=== PATIENT | female | born 1980 ===

== ENCOUNTER 2017-09-21 22:13 | Emergency (ER) | payer SELFPAY ==
[2017-09-21] MEDS ORDERED: METOCLOPRAMIDE 5 MG/ML 2 ML VIAL IVP STA (22:55)
[2017-09-21] MEDS ORDERED: diphenhydrAMINE 50 MG/ML 1 ML VIAL IVP STA (22:55)
[2017-09-21] MEDS ORDERED: SODIUM CHLORIDE 0.9% 1,000 ML IV STA (22:55)
[2017-09-21 23:22] LABS: Basophils # (A) 0.1 k/uL (0-0.2); Basophils % (A) 1 %; Eosinophils # (A) 0.3 k/uL (0-0.7); Eosinophils % (A) 6 %; HCT 41.1 % (34.0-46.0); HGB 13.9 gm/dL (11.4-16.0); Lymphocytes # (A) 2.4 k/uL (1.0-4.8); Lymphocytes % (A) 44 %; MCH 32.9 pg (25.0-35.0); MCHC 33.7 g/dL (31.0-37.0); MCV 97.4 fL (80.0-100.0); Mean Platelet Volume 6.7; Monocytes # (A) 0.4 k/uL (0-1.0); Monocytes % (A) 7 %; Neutrophils # (A) 2.2 k/uL (1.3-7.7); Neutrophils % (A) 40 %; Platelet Count 316 k/uL (150-450); RBC 4.22 m/uL (3.80-5.40); RDW 12.7 % (11.5-15.5); WBC 5.5 k/uL (3.8-10.6)
[2017-09-21 23:34] LABS: Anion Gap 14 mmol/L; Blood Urea Nitrogen 11 mg/dL (7-17); Calcium 9.5 mg/dL (8.4-10.2); Carbon Dioxide 26 mmol/L (22-30); Chloride 105 mmol/L (98-107); Glucose 91 mg/dL (74-99); Potassium 4.1 mmol/L (3.5-5.1); Sodium 145 mmol/L (137-145)
[2017-09-21 23:46] LABS: Appearance,Urine Clear (Clear); Bilirubin,Urine Negative (Negative); Blood,Urine Negative (Negative); Color,Urine Yellow; Glucose,Urine (UA) Negative (Negative); Ketones,Urine Negative (Negative); Leukocyte Esterase,Urine Negative (Negative); Nitrite,Urine Negative (Negative); Protein,Urine Negative (Negative); Specific Gravity,Urine 1.017 (1.001-1.035); Urobilinogen,Urine <2.0 mg/dL (<2.0)
--- NOTE | 2017-09-21 23:55 | ED ---
Headache HPI - General Chief Complaint: Headache Stated Complaint: Headache Time Seen by Provider: 09/21/17 22:37 Mode of arrival: ambulatory Limitations: no limitations - History of Present Illness Initial Comments: Patient is a 37-year-old female presenting for fatigue and headache. Patient states that she has only past medical history of hypothyroid which she has been compliant with her medication,. She states that on Sunday, she will, with a slight headache which progressively got worse throughout the day as been fairly constant. He feels a pressure sensation movement of her head. She admits to some nausea but no vomiting and states that she has not been having any fevers or chills as well as abdominal pain. Her last menstrual period was 2 days ago and she denies any chest pain or shortness breath. She also states that she has been having some drainage in her throat as well as some coughing at night. However, she denies any unintentional weight loss - Related Data Home Medications Medication Instructions Recorded Confirmed Ibuprofen [Advil] 200 - 400 mg PO Q8HR PRN 09/21/17 09/21/17 Levothyroxine Sodium [Synthroid] 50 mcg PO DAILY 09/21/17 09/21/17 Sertraline [Zoloft] 50 mg PO DAILY 09/21/17 09/21/17 Previous Rx's Medication Instructions Recorded Ondansetron Odt [Zofran Odt] 4 mg PO Q8HR PRN #15 tab 09/22/17 Allergies Allergy/AdvReac Type Severity Reaction Status Date / Time sulfamethoxazole Allergy Rash/Hives Verified 09/21/17 23:03 [From Bactrim] trimethoprim [From Bactrim] Allergy Rash/Hives Verified 09/21/17 23:03 Review of Systems ROS Statement: Those systems with pertinent positive or pertinent negative responses have been documented in the HPI. Constitutional: Negative for chills, and fever.. Positive for fatigue HENT: Negative for congestion. Respiratory: Negative for chest tightness, shortness of breath and wheezing. Cardiovascular: Negative for chest pain and palpitations. Gastrointestinal: Negative for abdominal pain. Negative for abdominal distention , diarrhea, nausea and vomiting. Genitourinary: Negative for dysuria. Musculoskeletal: Negative for back pain, neck pain and neck stiffness. Positive for diffuse myalgias Skin: Negative for color change. Neurological: Negative for dizziness, speech difficulty, weakness and light- headedness. Positive for headache Psychiatric/Behavioral: Negative for agitation and confusion. The patient is not nervous/anxious. ROS Other: All systems not noted in ROS Statement are negative. Past Medical History Past Medical History: Thyroid Disorder History of Any Multi-Drug Resistant Organisms: None Reported Past Surgical History: No Surgical Hx Reported Past Psychological History: Depression Smoking Status: Current every day smoker Past Alcohol Use History: None Reported Past Drug Use History: None Reported General Exam - General Exam Comments Initial Comments: Physical Exam Constitutional: Pt is oriented to person, place, and time. Pt appears well- developed and well-nourished. No distress. HENT: Head: Normocephalic and atraumatic. Eyes: EOM are normal. Pupils equal reactive bilaterally measuring 3 mm Neck: Normal range of motion. Neck supple. Cardiovascular: Normal rate, regular rhythm, S1 normal, S2 normal and normal heart sounds. Exam reveals no gallop and no friction rub. No murmur heard. Pulmonary/Chest: Effort normal and breath sounds normal. No tachypnea and no bradypnea. No respiratory distress. No wheezes or rales noted. Abdominal: Soft. Bowel sounds are normal. Pt exhibits no shifting dullness, no distension, no pulsatile liver, no fluid wave, no abdominal bruit and no ascites. There is no tenderness. There is no rigidity, no rebound, no guarding, no tenderness at McBurney's point and negative Lambert's sign. Musculoskeletal: Normal range of motion. Neurological: Pt is alert and oriented to person, place, and time. No cranial nerve deficit. Negative Kernig and Brudzinski Skin: Skin is warm and dry. No rash noted. Pt is not diaphoretic. No erythema. No pallor. Psychiatric: Pt has a normal mood and affect. Pt behavior is normal. Thought content normal. Limitations: no limitations Course Vital Signs 09/21/17 22:30 Temperature 97.6 F Pulse Rate 69 Respiratory 19 Rate Blood Pressure 126/65 O2 Sat by Pulse 97 Oximetry - Reevaluation(s) Reevaluation #1: 09/22/17 00:11 Laboratory studies revealed that there was no significant leukocytosis and electrolytes are relatively within normal limits. Additionally, influenza was noted to be negative and urinalysis was negative for both and infection. Patient did state that her head felt much better after medications which included Reglan and Benadryl. She also got 1 L of normal saline. Discussions regarding CT of the head read and it was mutually decided that CT head was not warranted at this moment as there is no neuro deficits and that findings on physical exam as well as HPI or were not consistent with any emergent process such as subarachnoid hemorrhage or central venous thrombosis. However, it was decided that chest x-ray will be ordered to evaluate for possible infiltrate. Medical Decision Making - Medical Decision Making On reexamination prior to discharge, the patient continues to remain hemodynamically stable in no acute distress. Chest x-ray was also performed and showed no evidence of acute pathology or infiltrate. It was explained that while there does not appear to be an emergent process, the etiology of the symptoms are still unclear but possibly related to viral illness and may need further workup as an outpatient if symptoms continue. Explained all labs and diagnostic test results and that we will discharge the patient home and patient is to follow up with PCP in 1-2 days and return to the ED if symptoms worsen. Pt is agreeable to plan. - Lab Data Result diagrams: 09/21/17 23:00 09/21/17 23:00 Lab Results 09/21/17 09/21/17 09/21/17 Range/Units 23:00 23:00 23:00 WBC 5.5 (3.8-10.6) k/uL RBC 4.22 (3.80-5.40) m/uL Hgb 13.9 (11.4-16.0) gm/dL Hct 41.1 (34.0-46.0) % MCV 97.4 (80.0-100.0) fL MCH 32.9 (25.0-35.0) pg MCHC 33.7 (31.0-37.0) g/dL RDW 12.7 (11.5-15.5) % Plt Count 316 (150-450) k/uL Neutrophils % 40 % Lymphocytes % 44 % Monocytes % 7 % Eosinophils % 6 % Basophils % 1 % Neutrophils # 2.2 (1.3-7.7) k/uL Lymphocytes # 2.4 (1.0-4.8) k/uL Monocytes # 0.4 (0-1.0) k/uL Eosinophils # 0.3 (0-0.7) k/uL Basophils # 0.1 (0-0.2) k/uL Sodium 145 (137-145) mmol/L Potassium 4.1 (3.5-5.1) mmol/L Chloride 105 (98-107) mmol/L Carbon Dioxide 26 (22-30) mmol/L Anion Gap 14 mmol/L BUN 11 (7-17) mg/dL Creatinine 0.70 (0.52-1.04) mg/dL Est GFR (CKD-EPI)AfAm >90 (>60 ml/min/1.73 sqM) Est GFR (CKD-EPI)NonAf >90 (>60 ml/min/1.73 sqM) Glucose 91 (74-99) mg/dL Calcium 9.5 (8.4-10.2) mg/dL Magnesium 2.0 (1.6-2.3) mg/dL TSH 1.110 (0.465-4.680) mIU/L Urine Color Urine Appearance (Clear) Urine pH (5.0-8.0) Ur Specific [place] (1.001-1.035) Urine Protein (Negative) Urine Glucose (UA) (Negative) Urine Ketones (Negative) Urine Blood (Negative) Urine Nitrite (Negative) Urine Bilirubin (Negative) Urine Urobilinogen (<2.0) mg/dL Ur Leukocyte Esterase (Negative) Urine HCG, Qual (Not Detectd) Influenza Type A RNA Not Detected (Not Detectd) Influenza Type B (PCR) Not Detected (Not Detectd) 09/21/17 09/21/17 Range/Units 23:20 23:20 WBC (3.8-10.6) k/uL RBC (3.80-5.40) m/uL Hgb (11.4-16.0) gm/dL Hct (34.0-46.0) % MCV (80.0-100.0) fL MCH (25.0-35.0) pg MCHC (31.0-37.0) g/dL RDW (11.5-15.5) % Plt Count (150-450) k/uL Neutrophils % % Lymphocytes % % Monocytes % % Eosinophils % % Basophils % % Neutrophils # (1.3-7.7) k/uL Lymphocytes # (1.0-4.8) k/uL Monocytes # (0-1.0) k/uL Eosinophils # (0-0.7) k/uL Basophils # (0-0.2) k/uL Sodium (137-145) mmol/L Potassium (3.5-5.1) mmol/L Chloride (98-107) mmol/L Carbon Dioxide (22-30) mmol/L Anion Gap mmol/L BUN (7-17) mg/dL Creatinine (0.52-1.04) mg/dL Est GFR (CKD-EPI)AfAm (>60 ml/min/1.73 sqM) Est GFR (CKD-EPI)NonAf (>60 ml/min/1.73 sqM) Glucose (74-99) mg/dL Calcium (8.4-10.2) mg/dL Magnesium (1.6-2.3) mg/dL TSH (0.465-4.680) mIU/L Urine Color Yellow Urine Appearance Clear (Clear) Urine pH 6.0 (5.0-8.0) Ur Specific [place] 1.017 (1.001-1.035) Urine Protein Negative (Negative) Urine Glucose (UA) Negative (Negative) Urine Ketones Negative (Negative) Urine Blood Negative (Negative) Urine Nitrite Negative (Negative) Urine Bilirubin Negative (Negative) Urine Urobilinogen <2.0 (<2.0) mg/dL Ur Leukocyte Esterase Negative (Negative) Urine HCG, Qual Not Detected (Not Detectd) Influenza Type A RNA (Not Detectd) Influenza Type B (PCR) (Not Detectd) Disposition Clinical Impression: Headache Disposition: HOME SELF-CARE Condition: Good Instructions: Acute Headache (ED) Prescriptions: Ondansetron Odt [Zofran Odt] 4 mg PO Q8HR PRN #15 tab PRN Reason: Nausea And Vomiting Is patient prescribed a controlled substance at d/c from ED?: No Referrals: Nonstaff,Physician [Primary Care Provider] - 1-2 days Time of Disposition: 00:35
--- NOTE | 2017-09-22 00:29 | XR ---
EXAMINATION TYPE: XR chest 1V DATE OF EXAM: 09/22/2017 COMPARISON: NONE HISTORY: Cough TECHNIQUE: Single frontal view of the chest is obtained. FINDINGS: Heart and mediastinum are normal. Lungs are clear. Diaphragm is normal. Bony thorax is int act. IMPRESSION: Normal chest
[2017-09-22 00:59] VITALS: BP 123/68; PULSE 74; RESP 16; TEMP 97.3
== END 2017-09-22 00:59 | disposition home or self-care (01) ==
LOC: EC 22:13
DX: R51 Headache (principal); R53.83 Other fatigue; R11.0 Nausea; E03.9 Hypothyroidism, unspecified; F32.9 Major depressive disorder, single episode, unspecified; F17.200 Nicotine dependence, unspecified, uncomplicated; Z79.899 Other long term (current) drug therapy; Z88.2 Allergy status to sulfonamides
CPT/HCPCS: 36415; 80048; 84443; 83735; 85025; 81003; 81025; 87502; 71045; 99284; 96374; 96375; 96361; J1200; J2765

== ENCOUNTER 2018-01-06 13:59 | Emergency (ER) | payer OTHER ==
[2018-01-06 14:06] VITALS: RESP 18
[2018-01-06] MEDS ORDERED: ONDANSETRON ODT 4 MG TAB PO STA (14:42)
[2018-01-06] MEDS ORDERED: MECLIZINE 12.5 MG TAB PO STA (14:42)
--- NOTE | 2018-01-06 14:46 | ED ---
General Adult HPI - General Chief complaint: Dizziness Stated complaint: Dizziness Time Seen by Provider: 01/06/18 14:20 Source: patient, RN notes reviewed Mode of arrival: ambulatory Limitations: no limitations - History of Present Illness Initial comments: Patient's a 37-year-old female presenting to the emergency room today with a chief complaint of feeling confused and feeling dizzy. Patient does admit that she had upper respiratory infection and sinus infection which was treated for approximately a week and a half ago. Patient does admit that these symptoms of cough congestion and rhinorrhea improved. She states she still feeling confused at times. 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 Patient states that she's had these dizzy spells for the last week and a half. Patient does admit to having headaches. She admits that she has a difficult time concentrating and focusing on things. She states when she wakes up in the morning she feels okay but as she gets going through the day symptoms seemed to increase worse. Patient does not that she had a head injury 2 weeks ago when she was at work. She states she was getting ice out of a cooler when the door came down hitting her on top of the head and nose area and she believes she lost consciousness. She states she felt fine at that time did not get checked out. States the symptoms started few days after this injury. Patient denies any recent fever, chills, shortness of breath, chest pain, back pain, abdominal pain, nausea or vomiting, numbness or tingling, visual changes, or any other complaints. - Related Data Home Medications Medication Instructions Recorded Confirmed Ibuprofen [Advil] 200 - 400 mg PO Q8HR PRN 09/21/17 09/21/17 Levothyroxine Sodium [Synthroid] 50 mcg PO DAILY 09/21/17 09/21/17 Sertraline [Zoloft] 50 mg PO DAILY 09/21/17 09/21/17 Previous Rx's Medication Instructions Recorded Ondansetron Odt [Zofran Odt] 4 mg PO Q8HR PRN #15 tab 09/22/17 Meclizine [Antivert] 25 mg PO DAILY 10 Days tab 01/06/18 Ondansetron Odt [Zofran ODT] 4 mg PO Q8HR PRN #20 tab 01/06/18 Allergies Allergy/AdvReac Type Severity Reaction Status Date / Time sulfamethoxazole Allergy Rash/Hives Verified 01/06/18 14:06 [From Bactrim] trimethoprim [From Bactrim] Allergy Rash/Hives Verified 01/06/18 14:06 Review of Systems ROS Statement: Those systems with pertinent positive or pertinent negative responses have been documented in the HPI. ROS Other: All systems not noted in ROS Statement are negative. Past Medical History Past Medical History: Thyroid Disorder History of Any Multi-Drug Resistant Organisms: None Reported Past Surgical History: No Surgical Hx Reported Past Psychological History: Depression Smoking Status: Current every day smoker Past Alcohol Use History: None Reported Past Drug Use History: None Reported General Exam - General Exam Comments Initial Comments: General: The patient is awake and alert, in no distress, and does not appear acutely ill. Eye: Pupils are equal, round and reactive to light, extra-ocular movements are intact. No nystagmus. There is normal conjunctiva bilaterally. No signs of icterus. Ears, nose, mouth and throat: There are moist mucous membranes and no oral lesions. Neck: The neck is supple, there is no tenderness or JVD. Cardiovascular: There is a regular rate and rhythm. No murmur, rub or gallop is appreciated. Respiratory: Lungs are clear to auscultation, respirations are non-labored, breath sounds are equal. No wheezes, stridor, rales, or rhonchi. Musculoskeletal: Normal ROM, no tenderness. Strength 5/5. Sensation intact. Pulses equal bilaterally 2+. Neurological: A&O x 3. CN II-XII intact, There are no obvious motor or sensory deficits. Coordination appears grossly intact. Speech is normal. Skin: Skin is warm and dry and no rashes or lesions are noted. Psychiatric: Cooperative, appropriate mood & affect, normal judgment. Limitations: no limitations Course Vital Signs 01/06/18 14:03 Temperature 98.8 F Pulse Rate 113 H Respiratory 18 Rate Blood Pressure 116/82 O2 Sat by Pulse 99 Oximetry Medical Decision Making - Medical Decision Making Case discussed in detail with attending physician Dr. Bowens. Patient reexamined at this time shows no signs of distress resting comfortably. Patient' s recent visit from [facility] was reviewed from 01/04/2018 showed normal CMP and magnesium. Urinalysis showed no sign of infection. CBC reviewed. Patient did have chest x-ray showing the findings heart and mediastinum normal. Lungs clear. Diaphragm is normal. Bony thorax appears normal. As read by radiology. CT of the head without contrast showed ventricles have normal size. No mass effect or midline shift. No sign of intracranial hemorrhage. Calvarium intact. As read by radiologist. Patient is resting comfortably in the emergency room she was given Zofran and meclizine. She does admit to feeling better with some of her symptoms. Patient did have head injury that occurred oxygen 2 weeks ago and the symptoms have progressed since that time. Patient advised following up with family physician and neurology for postconcussion syndrome. Advised to return to emergency room for any other concerns. Advised to limit physical activity. Disposition Clinical Impression: Postconcussion syndrome Disposition: HOME SELF-CARE Condition: Good Instructions: Post Concussion Syndrome (ED) Additional Instructions: Please limit physical activity and follow-up the family doctor and urologist over the next 2 days. Please return here to the emergency room for any other concerns. Prescriptions: Meclizine [Antivert] 25 mg PO DAILY 10 Days tab Ondansetron Odt [Zofran ODT] 4 mg PO Q8HR PRN #20 tab PRN Reason: Nausea Is patient prescribed a controlled substance at d/c from ED?: No Referrals: Valeria Calle MD [Primary Care Provider] - 1-2 days Pascale Cisneros MD [STAFF PHYSICIAN] - 1-2 days Time of Disposition: 15:53
[2018-01-06 16:09] VITALS: BP 116/64; PULSE 100; TEMP 97.8
== END 2018-01-06 16:08 | disposition home or self-care (01) ==
LOC: EC 13:59
DX: F07.81 Postconcussional syndrome (principal); S09.90XA Unspecified injury of head, initial encounter; E07.9 Disorder of thyroid, unspecified; F32.9 Major depressive disorder, single episode, unspecified; F17.200 Nicotine dependence, unspecified, uncomplicated; Z79.899 Other long term (current) drug therapy; Z88.2 Allergy status to sulfonamides; X58.XXXA Exposure to other specified factors, initial encounter
CPT/HCPCS: 99284

== ENCOUNTER 2018-03-21 18:24 | Emergency (ER) | payer OTHER ==
[2018-03-21 18:36] VITALS: RESP 18
[2018-03-21] MEDS ORDERED: MECLIZINE 12.5 MG TAB PO STA (18:56)
[2018-03-21] MEDS ORDERED: SODIUM CHLORIDE 0.9% 1,000 ML IV STA (18:56)
[2018-03-21] MEDS ORDERED: ONDANSETRON 4 MG/2 ML VIAL IVP STA (18:56)
[2018-03-21] MEDS ORDERED: KETOROLAC 30 MG/ML 1 ML VIAL IVP STA (18:57)
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
[2018-03-21 19:26] LABS: Basophils % (A) 1 %; Eosinophils # (A) 0.2 k/uL (0-0.7); Eosinophils % (A) 3 %; HCT 41.4 % (34.0-46.0); HGB 13.6 gm/dL (11.4-16.0); Lymphocytes # (A) 1.5 k/uL (1.0-4.8); Lymphocytes % (A) 19 %; MCH 32.3 pg (25.0-35.0); MCV 98.1 fL (80.0-100.0); Mean Platelet Volume 6.6; Monocytes # (A) 0.4 k/uL (0-1.0); Monocytes % (A) 5 %; Neutrophils # (A) 5.6 k/uL (1.3-7.7); Neutrophils % (A) 72 %; Platelet Count 308 k/uL (150-450); RBC 4.22 m/uL (3.80-5.40); RDW 12.2 % (11.5-15.5); WBC 7.8 k/uL (3.8-10.6)
[2018-03-21 19:29] LABS: Potassium 4.2 mmol/L (3.5-5.1); Total Bilirubin 0.4 mg/dL (0.2-1.3); Total Protein 6.6 g/dL (6.3-8.2)
[2018-03-21 19:31] LABS: Partial Thromboplastin Time 24.4 sec (22.0-30.0); Prothrombin Time 9.9 sec (9.0-12.0)
[2018-03-21 19:42] LABS: Creatine Kinase 63 U/L (30-135)
[2018-03-21 19:56] LABS: Creatine Kinase MB 0.3 ng/mL (0.0-2.4); Troponin I <0.012 ng/mL (0.000-0.034)
[2018-03-21 20:56] LABS: Amorphous Sediment,Urine Rare /hpf; Appearance,Urine Cloudy (Clear); Bacteria,Urine Rare /hpf; Bilirubin,Urine Negative (Negative); Blood,Urine Negative (Negative); Color,Urine Light Yellow; Glucose,Urine (UA) Negative (Negative); Ketones,Urine Negative (Negative); Leukocyte Esterase,Urine Negative (Negative); Nitrite,Urine Negative (Negative); PH, Urine 5.5 (5.0-8.0); Protein,Urine Negative (Negative); RBC,Urine 1 /hpf (0-5); Specific Gravity,Urine 1.005 (1.001-1.035); Squamous Epithelial Cell,Urine 6 /hpf (0-4); Urobilinogen,Urine <2.0 mg/dL (<2.0); WBC,Urine 1 /hpf (0-5)
[2018-03-21 21:05] LABS: Amphetamine Screen,Urine Not Detected (NotDetected); Barbiturate Screen,Urine Not Detected (NotDetected); Benzodiazepines Screen,Urine Not Detected (NotDetected); Cocaine Screen,Urine Not Detected (NotDetected); Methadone Screen, Urine Not Detected (NotDetected); Opiate Screen,Urine Not Detected (NotDetected); Oxycodone Screen, Urine Not Detected (NotDetected); Phencyclidine Screen,Urine Not Detected (NotDetected); Tricyclic Antidepressant,Urine Not Detected (NotDetected); Urn Cannabinoid Scrn Not Detected (NotDetected)
[2018-03-21 21:54] VITALS: BP 100/64; PULSE 75; TEMP 98
== END 2018-03-21 21:54 | disposition home or self-care (01) ==
LOC: EC 18:24
DX: T50.901A Poisoning by unspecified drugs, medicaments and biological substances, accidental (unintentional), initial encounter (principal); R41.0 Disorientation, unspecified; R42 Dizziness and giddiness
CPT/HCPCS: 36415; 93005; 80053; 82550; 82553; 84484; 85025; 85610; 85730; 81001; 81025; 80306; 99284; 96374; 96375 ×2; 96361 ×3; J2405; J1885

== ENCOUNTER 2018-05-24 21:35 | Emergency (ER) | payer OTHER ==
[2018-05-24 22:09] VITALS: BP 114/84; PULSE 70; RESP 18; TEMP 98
[2018-05-24 22:34] LABS: Appearance,Urine Clear (Clear); Bacteria,Urine Occasional /hpf; Bilirubin,Urine Negative (Negative); Blood,Urine Moderate (Negative); Color,Urine Colorless; Glucose,Urine (UA) Negative (Negative); Ketones,Urine Negative (Negative); Leukocyte Esterase,Urine Large (Negative); Nitrite,Urine Negative (Negative); PH, Urine 5.5 (5.0-8.0); Protein,Urine Negative (Negative); Specific Gravity,Urine 1.001 (1.001-1.035); Squamous Epithelial Cell,Urine 2 /hpf (0-4); Urobilinogen,Urine <2.0 mg/dL (<2.0); WBC,Urine 29 /hpf (0-5)
[2018-05-24] MEDS ORDERED: KETOROLAC 30 MG/ML 1 ML VIAL IM STA (23:48)
[2018-05-24] MEDS ORDERED: PHENAZOPYRIDINE 200 MG TAB PO STA (23:49)
[2018-05-25] MEDS ORDERED: CEPHALEXIN 500MG STARTER PACK 4 CAP BTL PO STA (00:20)
--- NOTE | 2018-05-25 00:44 | ED ---
General Adult HPI - General Chief complaint: Urogenital Stated complaint: poss UTI, burning Time Seen by Provider: 05/24/18 22:58 Source: patient, RN notes reviewed Mode of arrival: ambulatory Limitations: no limitations - History of Present Illness Initial comments: 37-year-old female presents the emergency department for a chief complaint of burning with urination times one day. Patient states she was recently diagnosed with a yeast infection. She states that today she started to have intense burning worse with urination. Patient states this is relieved after she urinates. Patient states she was recently tested for STDs which were negative. Patient does not want treatment today because her previous tests were negative. She denies any fevers or chills. Patient denies any back pain. Patient denies any abdominal pain and states the burning is all near the urethra. She denies any vaginal pain. Patient has no other complaints at this time including shortness of breath, chest pain, abdominal pain, nausea or vomiting, headache, or visual changes. - Related Data Home Medications Medication Instructions Recorded Confirmed Levothyroxine Sodium [Synthroid] 50 mcg PO DAILY 09/21/17 05/24/18 Cholecalciferol [Vitamin D3] 1,000 unit PO DAILY 03/21/18 05/24/18 Cyanocobalamin [Vitamin B-12] 500 mcg PO DAILY 03/21/18 05/24/18 Ascorbic Acid [Vitamin C] 1,000 mg PO DAILY 05/24/18 05/24/18 Previous Rx's Medication Instructions Recorded Cephalexin [Keflex] 500 mg PO Q6H 10 Days cap 05/25/18 Allergies Allergy/AdvReac Type Severity Reaction Status Date / Time sulfamethoxazole Allergy Rash/Hives Verified 05/24/18 22:11 [From Bactrim] trimethoprim [From Bactrim] Allergy Rash/Hives Verified 05/24/18 22:11 Review of Systems ROS Statement: Those systems with pertinent positive or pertinent negative responses have been documented in the HPI. ROS Other: All systems not noted in ROS Statement are negative. Past Medical History Past Medical History: Thyroid Disorder History of Any Multi-Drug Resistant Organisms: None Reported Past Surgical History: No Surgical Hx Reported Past Psychological History: Depression Smoking Status: Current every day smoker Past Alcohol Use History: None Reported Past Drug Use History: None Reported General Exam Limitations: no limitations General appearance: alert, in no apparent distress Head exam: Present: atraumatic, normocephalic, normal inspection Eye exam: Present: normal appearance, PERRL, EOMI. Absent: scleral icterus, conjunctival injection, periorbital swelling ENT exam: Present: normal exam, normal oropharynx, mucous membranes moist, TM's normal bilaterally, normal external ear exam Neck exam: Present: normal inspection, full ROM. Absent: tenderness, meningismus, lymphadenopathy Respiratory exam: Present: normal lung sounds bilaterally. Absent: respiratory distress, wheezes, rales, rhonchi, stridor Cardiovascular Exam: Present: regular rate, normal rhythm, normal heart sounds. Absent: systolic murmur, diastolic murmur, rubs, gallop, clicks GI/Abdominal exam: Present: soft, normal bowel sounds. Absent: distended, tenderness (No tenderness noted of the abdomen whatsoever), guarding, rebound, rigid External exam: Present: normal external exam. Absent: erythema, swelling, lesions, lacerations, ecchymosis Speculum exam: Present: normal speculum exam. Absent: erythema, vaginal discharge (Minimal vaginal discharge that appears normal), cervical discharge, vaginal bleeding, foreign body By manual exam: Present: normal by manual exam. Absent: cervical motion tenderness, adnexal tenderness, adnexal mass, uterine enlargement, uterine tenderness Back exam: Absent: CVA tenderness (R), CVA tenderness (L) Neurological exam: Present: alert, oriented X3, CN II-XII intact Psychiatric exam: Present: normal affect, normal mood Course Vital Signs 05/24/18 22:03 Temperature 98 F Pulse Rate 70 Respiratory 18 Rate Blood Pressure 114/84 O2 Sat by Pulse 99 Oximetry Medical Decision Making - Medical Decision Making 37-year-old female presents to the emergency department for a chief of burning with urination. Patient states this pain is relieved after she urinates. She denies any difficulty urinating and has urinated multiple times in the emergency department. Patient admits to urinary frequency and urgency. Patient recently had negative STD testing done. She is being treated for a yeast infection currently. Exam is unremarkable. No abdominal tenderness. No abnormal findings on pelvic exam. No CVA tenderness or back pain. Gonorrhea Chlamydia and Trichomonas are pending. Urine did show moderate blood with large leukocyte esterase and 29 white blood cells. HCG negative. Patient likely has urinary tract infection. Patient was given Toradol and Pyridium which helped her pain significantly. She was given Keflex here in the emergency department as well as a prescription. Discussed following up with primary care but returning if patient has any worsening symptoms which she agrees with. Discussed following up on culture results for gonorrhea Chlamydia and Trichomonas. - Lab Data Lab Results 05/24/18 05/24/18 05/25/18 Range/Units 22:12 22:21 00:27 Urine Color Colorless Urine Appearance Clear (Clear) Urine pH 5.5 (5.0-8.0) Ur Specific [place] 1.001 (1.001-1.035) Urine Protein Negative (Negative) Urine Glucose (UA) Negative (Negative) Urine Ketones Negative (Negative) Urine Blood Moderate H (Negative) Urine Nitrite Negative (Negative) Urine Bilirubin Negative (Negative) Urine Urobilinogen <2.0 (<2.0) mg/dL Ur Leukocyte Esterase Large H (Negative) Urine WBC 29 H (0-5) /hpf Ur Squamous Epith Cells 2 (0-4) /hpf Urine Bacteria Occasional H (None) /hpf Urine HCG, Qual Not Detected (Not Detectd) Trichomonas Ag (Rapid) Negative (Negative) Disposition Clinical Impression: Urinary tract infection Disposition: HOME SELF-CARE Condition: Good Instructions: Urinary Tract Infection in Women (ED) Additional Instructions: Take antibiotic as directed. Please follow up with primary care in 1-2 days. Please return to the emergency department if you've any worsening symptoms. Prescriptions: Cephalexin [Keflex] 500 mg PO Q6H 10 Days cap Is patient prescribed a controlled substance at d/c from ED?: No Referrals: Valeria Calle MD [Primary Care Provider] - 1-2 days Time of Disposition: 00:42
[2018-05-27 15:15] LABS: C. trachomatis,PCR Negative (Neg,Equiv); Chlamydia trachomatis Source Urine; N. gonorrhoeae,PCR Negative (Neg,Equiv); Neisseria Source Urine
== END 2018-05-25 01:03 | disposition home or self-care (01) ==
LOC: EC 21:35 → SUPCPDRO 21:35 → EC 05-25 01:03
DX: N39.0 Urinary tract infection, site not specified (principal); E07.9 Disorder of thyroid, unspecified; F17.200 Nicotine dependence, unspecified, uncomplicated; Z79.899 Other long term (current) drug therapy; Z88.2 Allergy status to sulfonamides
CPT/HCPCS: 81001; 81025; 87808; 87491; 87591; 87086; 87077; 87186; 99283; 96372; J1885

== ENCOUNTER 2019-04-09 20:25 | Emergency (ER) | payer OTHER ==
[2019-04-09] MEDS ORDERED: ONDANSETRON 4 MG/2 ML VIAL IVP STA (21:05)
[2019-04-09] MEDS ORDERED: SODIUM CHLORIDE 0.9% 1,000 ML IV STA (21:05)
[2019-04-09] MEDS ORDERED: KETOROLAC 30 MG/ML 1 ML VIAL IVP STA (21:05)
[2019-04-09 21:35] LABS: Basophils # (A) 0.1 k/uL (0-0.2); Basophils % (A) 2 %; Eosinophils # (A) 0.7 k/uL (0-0.7); Eosinophils % (A) 9 %; HGB 12.9 gm/dL (11.4-16.0); Lymphocytes % (A) 37 %; MCH 31.6 pg (25.0-35.0); MCHC 33.9 g/dL (31.0-37.0); MCV 93.3 fL (80.0-100.0); Mean Platelet Volume 6.2; Monocytes # (A) 0.3 k/uL (0-1.0); Monocytes % (A) 4 %; Neutrophils # (A) 3.8 k/uL (1.3-7.7); Neutrophils % (A) 47 %; Platelet Count 298 k/uL (150-450); RBC 4.07 m/uL (3.80-5.40); RDW 12.7 % (11.5-15.5); WBC 8.2 k/uL (3.8-10.6)
[2019-04-09 21:40] LABS: Appearance,Urine Clear (Clear); Bilirubin,Urine Negative (Negative); Blood,Urine Trace (Negative); Color,Urine Dark Brown; Glucose,Urine (UA) Negative (Negative); Ketones,Urine Negative (Negative); Leukocyte Esterase,Urine Negative (Negative); Mucus,Urine Rare /hpf; Nitrite,Urine Negative (Negative); PH, Urine 5.5 (5.0-8.0); Protein,Urine Negative (Negative); RBC,Urine 2 /hpf (0-5); Specific Gravity,Urine 1.013 (1.001-1.035); Squamous Epithelial Cell,Urine 5 /hpf (0-4); Urobilinogen,Urine <2.0 mg/dL (<2.0); WBC,Urine <1 /hpf (0-5)
[2019-04-09 21:44] LABS: Potassium 4.1 mmol/L (3.5-5.1)
[2019-04-09 21:45] LABS: Albumin 4.1 g/dL (3.5-5.0); Calcium 9.1 mg/dL (8.4-10.2); Total Bilirubin 0.2 mg/dL (0.2-1.3); Total Protein 7.1 g/dL (6.3-8.2)
--- NOTE | 2019-04-09 21:51 | ED ---
Abdominal Pain HPI - General Chief Complaint: Abdominal Pain Stated Complaint: UTI Source: patient Mode of arrival: ambulatory Limitations: no limitations - History of Present Illness Initial Comments: 38-year-old female patient presents to the emergency department this evening for evaluation of suprapubic abdominal pain. Patient states she started having symptoms of urinary tract infection on Sunday including dysuria lower abdominal discomfort and frequency of urination. She was seen and evaluated at [facility] diagnosed with the UTI and given a prescription for Keflex. Patient states she continued to have pain so she did see her primary care physician yesterday who repeated the urine test which was again positive. She was given a prescription for Pyridium which she has been taking. Patient states that her pain is worsening. She denies any back pain or flank pain. Denies any hematuria. She denies fever, chills, vomiting, diarrhea, constipati on. States she has had some intermittent nausea when the pain is at its worst. Patient denies history of similar type abdominal pain. Denies history of abdominal surgery. Patient states that she has been with the same partner for the last 2 years, has not had intercourse last 4 months. She does not think she has a sexually transmitted infection but she agrees to be tested. Patient denies any recent rash, shortness breath, chest pain, numbness, tingling, dizziness, weakness, headache, visual changes, or any other complaints. - Related Data Home Medications Medication Instructions Recorded Confirmed Levothyroxine Sodium [Synthroid] 50 mcg PO DAILY 09/21/17 05/24/18 Cholecalciferol [Vitamin D3] 1,000 unit PO DAILY 03/21/18 05/24/18 Cyanocobalamin [Vitamin B-12] 500 mcg PO DAILY 03/21/18 05/24/18 Ascorbic Acid [Vitamin C] 1,000 mg PO DAILY 05/24/18 05/24/18 Previous Rx's Medication Instructions Recorded Cephalexin [Keflex] 500 mg PO Q6H 10 Days cap 05/25/18 RX: Ibuprofen [Motrin] 600 mg PO Q8HR PRN #30 tab 04/09/19 Allergies Allergy/AdvReac Type Severity Reaction Status Date / Time sulfamethoxazole Allergy Rash/Hives Verified 04/09/19 20:31 [From Bactrim] trimethoprim [From Bactrim] Allergy Rash/Hives Verified 04/09/19 20:31 Review of Systems ROS Statement: Those systems with pertinent positive or pertinent negative responses have been documented in the HPI. ROS Other: All systems not noted in ROS Statement are negative. Past Medical History Past Medical History: Thyroid Disorder Additional Past Medical History / Comment(s): UTI History of Any Multi-Drug Resistant Organisms: None Reported Past Surgical History: No Surgical Hx Reported Past Psychological History: Depression Smoking Status: Current every day smoker Past Alcohol Use History: None Reported Past Drug Use History: None Reported General Exam Limitations: no limitations General appearance: alert, in no apparent distress, other (This is a well- developed, well-nourished adult female patient in no acute distress. Vital signs upon presentation are temperature 97.9F, pulse 107, respirations 20, blood pressure 116/79, pulse ox 98% on room air.) Eye exam: Present: normal appearance, PERRL, EOMI. Absent: scleral icterus, conjunctival injection, periorbital swelling ENT exam: Present: normal exam, normal oropharynx, mucous membranes moist Respiratory exam: Present: normal lung sounds bilaterally. Absent: respiratory distress, wheezes, rales, rhonchi, stridor Cardiovascular Exam: Present: regular rate, normal rhythm, normal heart sounds. Absent: systolic murmur, diastolic murmur, rubs, gallop, clicks GI/Abdominal exam: Present: soft, tenderness (Suprapubic), normal bowel sounds. Absent: distended, guarding, rebound, rigid Rectal exam: Present: deferred External exam: Present: normal external exam Speculum exam: Present: normal speculum exam, vaginal discharge (Mild physiologic). Absent: cervical discharge By manual exam: Present: normal by manual exam. Absent: cervical motion tenderness, adnexal tenderness Neurological exam: Present: alert, oriented X3, CN II-XII intact Psychiatric exam: Present: normal affect, normal mood Skin exam: Present: warm, dry, intact, normal color. Absent: rash Course Vital Signs 04/09/19 20:27 Temperature 97.9 F Pulse Rate 107 H Respiratory 20 Rate Blood Pressure 116/79 O2 Sat by Pulse 98 Oximetry Medical Decision Making - Medical Decision Making 38-year-old female patient percents to the emergency department today for evaluation of pelvic pain. Patient was diagnosed with UTI the other day. Has been taking her antibiotics without relief. Physical examination reveals suprapubic tenderness. No CVA tenderness. Labs reviewed and did reveal acute kidney injury. Urinalysis showed no evidence for infection. Ultrasound was obtained and showed 1.8 cm cyst to the left ovary. Multiple large cervical cyst. Pelvic exam was performed and showed no evidence for cervicitis. Cultures were sent. I did discuss findings and results with the patient. We d id discuss ovarian cyst as a possible cause for her symptoms. She'll be discharged to follow-up with the fluorescent lighting model maker for further evaluation as soon as possible. She is instructed about the primary care physician for recheck in 1-2 days. Return parameters discussed in detail. She verbalizes understanding and agrees with this plan. - Lab Data Result diagrams: 04/09/19 21:21 04/09/19 21:21 Lab Results 04/09/19 04/09/19 04/09/19 Range/Units 21:21 21:21 21:21 WBC 8.2 (3.8-10.6) k/uL RBC 4.07 (3.80-5.40) m/uL Hgb 12.9 (11.4-16.0) gm/dL Hct 38.0 (34.0-46.0) % MCV 93.3 (80.0-100.0) fL MCH 31.6 (25.0-35.0) pg MCHC 33.9 (31.0-37.0) g/dL RDW 12.7 (11.5-15.5) % Plt Count 298 (150-450) k/uL Neutrophils % 47 % Lymphocytes % 37 % Monocytes % 4 % Eosinophils % 9 % Basophils % 2 % Neutrophils # 3.8 (1.3-7.7) k/uL Lymphocytes # 3.0 (1.0-4.8) k/uL Monocytes # 0.3 (0-1.0) k/uL Eosinophils # 0.7 (0-0.7) k/uL Basophils # 0.1 (0-0.2) k/uL Sodium 139 (137-145) mmol/L Potassium 4.1 (3.5-5.1) mmol/L Chloride 109 H (98-107) mmol/L Carbon Dioxide 20 L (22-30) mmol/L Anion Gap 10 mmol/L BUN 18 H (7-17) mg/dL Creatinine 1.11 H (0.52-1.04) mg/dL Est GFR (CKD-EPI)AfAm 74 (>60 ml/min/1.73 sqM) Est GFR (CKD-EPI)NonAf 64 (>60 ml/min/1.73 sqM) Glucose 88 (74-99) mg/dL Calcium 9.1 (8.4-10.2) mg/dL Total Bilirubin 0.2 (0.2-1.3) mg/dL AST 22 (14-36) U/L ALT 18 (9-52) U/L Alkaline Phosphatase 72 (38-126) U/L Total Protein 7.1 (6.3-8.2) g/dL Albumin 4.1 (3.5-5.0) g/dL Amylase 85 (30-110) U/L Lipase 203 (23-300) U/L Urine Color Dark Brown Urine Appearance Clear (Clear) Urine pH 5.5 (5.0-8.0) Ur Specific Woodruff 1.013 (1.001-1.035) Urine Protein Negative (Negative) Urine Glucose (UA) Negative (Negative) Urine Ketones Negative (Negative) Urine Blood Trace H (Negative) Urine Nitrite Negative (Negative) Urine Bilirubin Negative (Negative) Urine Urobilinogen <2.0 (<2.0) mg/dL Ur Leukocyte Esterase Negative (Negative) Urine RBC 2 (0-5) /hpf Urine WBC <1 (0-5) /hpf Ur Squamous Epith Cells 5 H (0-4) /hpf Urine Mucus Rare H (None) /hpf Urine HCG, Qual (Not Detectd) Trichomonas Ag (Rapid) (Negative) 04/09/19 04/09/19 Range/Units 21:21 21:21 WBC (3.8-10.6) k/uL RBC (3.80-5.40) m/uL Hgb (11.4-16.0) gm/dL Hct (34.0-46.0) % MCV (80.0-100.0) fL MCH (25.0-35.0) pg MCHC (31.0-37.0) g/dL RDW (11.5-15.5) % Plt Count (150-450) k/uL Neutrophils % % Lymphocytes % % Monocytes % % Eosinophils % % Basophils % % Neutrophils # (1.3-7.7) k/uL Lymphocytes # (1.0-4.8) k/uL Monocytes # (0-1.0) k/uL Eosinophils # (0-0.7) k/uL Basophils # (0-0.2) k/uL Sodium (137-145) mmol/L Potassium (3.5-5.1) mmol/L Chloride (98-107) mmol/L Carbon Dioxide (22-30) mmol/L Anion Gap mmol/L BUN (7-17) mg/dL Creatinine (0.52-1.04) mg/dL Est GFR (CKD-EPI)AfAm (>60 ml/min/1.73 sqM) Est GFR (CKD-EPI)NonAf (>60 ml/min/1.73 sqM) Glucose (74-99) mg/dL Calcium (8.4-10.2) mg/dL Total Bilirubin (0.2-1.3) mg/dL AST (14-36) U/L ALT (9-52) U/L Alkaline Phosphatase (38-126) U/L Total Protein (6.3-8.2) g/dL Albumin (3.5-5.0) g/dL Amylase (30-110) U/L Lipase (23-300) U/L Urine Color Urine Appearance (Clear) Urine pH (5.0-8.0) Ur Specific Woodruff (1.001-1.035) Urine Protein (Negative) Urine Glucose (UA) (Negative) Urine Ketones (Negative) Urine Blood (Negative) Urine Nitrite (Negative) Urine Bilirubin (Negative) Urine Urobilinogen (<2.0) mg/dL Ur Leukocyte Esterase (Negative) Urine RBC (0-5) /hpf Urine WBC (0-5) /hpf Ur Squamous Epith Cells (0-4) /hpf Urine Mucus (None) /hpf Urine HCG, Qual Not Detected (Not Detectd) Trichomonas Ag (Rapid) Negative (Negative) - Radiology Data Radiology results: report reviewed, image reviewed Ultrasound of the pelvis is obtained. Report was reviewed in its entirety. Impression by Dr. aGleana shows large cervical cyst. No solid adnexal mass. No free fluid. 1.8 cm cyst on the left ovary. Disposition Clinical Impression: Ovarian cyst, Pelvic pain Disposition: HOME SELF-CARE Condition: Good Instructions (If sedation given, give patient instructions): Ovarian Cyst (ED), Pelvic Pain in Women (ED), Ruptured Ovarian Cyst (ED) Additional Instructions: Take medications as directed. Follow-up with your SHIPPING PROCESSOR for recheck as soon as possible. Follow up with her primary care physician for recheck in 1-2 days. Return to the emergency department immediately for any new, worsening, or concerning symptoms. Prescriptions: RX: Ibuprofen [Motrin] 600 mg PO Q8HR PRN #30 tab PRN Reason: Pain Is patient prescribed a controlled substance at d/c from ED?: No Referrals: Valeria Calle MD [Primary Care Provider] - 1-2 days Time of Disposition: 23:32
[2019-04-09] MEDS ORDERED: SODIUM CHLORIDE 0.9% 500 ML 500 ML IV ONE (22:27)
[2019-04-09] MEDS ORDERED: HYDROmorphone 0.5 MG/0.5 ML SYRINGE IVP STA (22:30)
--- NOTE | 2019-04-09 22:32 | US ---
EXAMINATION TYPE: US transvaginal DATE OF EXAM: 04/09/2019 COMPARISON: NONE CLINICAL HISTORY: pelvic pain. Pelvic pain x 5 days. Hx LEEP. . TECHNIQUE: Transvaginal (TV). Date of LMP: 03/18/2019 EXAM MEASUREMENTS: Uterus: 7.4 x 4.9 x 3.7 cm Endometrial Stripe: 0.97 cm Right Ovary: 4.3 x 2.7 x 2.3 cm Area measured in the left adnexa, appears to be the Left Ovary: 2.7 x 2.4 x 1.9 cm 1. Uterus: Anteverted. Hypoechoic area seen in cervix measurin.5 x 1.8 x 1.1 cm. 2. Endometrium: Measures 0.97 cm. Hyperechoic area seen in the endometrium measurin.3 x 0.3 x 0. 2 cm. 3. Right Ovary: Measures slightly enlarged. Area of mixed echogenicity seen measurin.0 x 2.1 x 1. 6 cm. Arterial and venous waveforms seen. 4. Left Ovary: Hypoechoic area seen measurin.8 x 1.7 x 1.8 cm. Venous waveform seen. Limited ezra luation of arterial waveform. Possible peripheral arterial waveform seen. 5. Bilateral Adnexa: Anechoic area seen posterior to the uterus, toward the left adnexa, and adjacen t to the probable left ovary measurin.0 x 1.0 x 1.3 cm. 6. Posterior cul-de-sac: appears wnl IMPRESSION: There are large cervical cysts. No solid adnexal mass. No free fluid. 1.8 cm cyst on the left ovary.
[2019-04-09] MEDS ORDERED: ONDANSETRON 4 MG ODT STARTER PACK 2 TAB BTL PO STA (23:31)
[2019-04-09] MEDS ORDERED: ACET/COD 300 MG/30 MG STARTER PACK 6 TAB BTL PO STA (23:31)
[2019-04-09] MEDS ORDERED: IBUPROFEN 600 MG TAB PO STA (23:31)
[2019-04-10 00:24] VITALS: BP 133/78; PULSE 78; RESP 18; TEMP 98
[2019-04-10 14:07] LABS: N. gonorrhoeae,PCR Negative (Neg,Equiv); Neisseria Source Vagina
[2019-04-10 14:10] LABS: C. trachomatis,PCR Negative (Neg,Equiv); Chlamydia trachomatis Source Vagina
== END 2019-04-10 00:24 | disposition home or self-care (01) ==
LOC: EC 20:25
DX: N83.202 Unspecified ovarian cyst, left side (principal); N17.9 Acute kidney failure, unspecified; N88.8 Other specified noninflammatory disorders of cervix uteri; E07.9 Disorder of thyroid, unspecified; F17.200 Nicotine dependence, unspecified, uncomplicated; Z88.1 Allergy status to other antibiotic agents; Z88.2 Allergy status to sulfonamides
CPT/HCPCS: 36415; 80053; 82150; 83690; 85025; 81001; 81025; 87808; 87491; 87591; 87070; 93975; 76830; 99284; 96374; 96375 ×2; 96361; J2405; J1885; S0119; J1170

== ENCOUNTER 2019-04-11 02:30 | Emergency (ER) | payer OTHER ==
[2019-04-11] MEDS ORDERED: HYDROmorphone 0.5 MG/0.5 ML SYRINGE IM STA (03:07)
--- NOTE | 2019-04-11 03:07 | ED ---
General Adult HPI - General Chief complaint: Abdominal Pain Stated complaint: Recheck Female Time Seen by Provider: 04/11/19 02:42 Source: patient, RN notes reviewed Mode of arrival: ambulatory Limitations: no limitations - History of Present Illness Initial comments: Patient is a 38-year-old female who presents for a chief complaint of suprapubic and left lower quadrant abdominal pain. This has been ongoing for about 2 weeks. Patient has previously been seen at [facility] and given antibiotics. She also saw her primary care provider prior for this complaint as well. Patient was seen here in the emergency department last night and diagnosed with an ovarian cyst. Patient saw her primary care provider today and was told she would get a call this evening about following up with WATER FABRICATOR OPERATOR. Patient states she did not receive a call and when she called her WATER FABRICATOR OPERATOR they stated they could see her either tomorrow or Sunday. Patient states she is here to inquire about next step in this process to take care of the ovarian cyst.Patient has no other complaints at this time including shortness of breath, chest pain, nausea or vomiting, headache, or visual changes. - Related Data Home Medications Medication Instructions Recorded Confirmed Levothyroxine Sodium [Synthroid] 50 mcg PO DAILY 09/21/17 04/11/19 Cholecalciferol [Vitamin D3] 1,000 unit PO DAILY 03/21/18 04/11/19 Cyanocobalamin [Vitamin B-12] 500 mcg PO DAILY 03/21/18 04/11/19 Ascorbic Acid [Vitamin C] 1,000 mg PO DAILY 05/24/18 04/11/19 Previous Rx's Medication Instructions Recorded Cephalexin [Keflex] 500 mg PO Q6H 10 Days cap 05/25/18 Ibuprofen [Motrin] 600 mg PO Q8HR PRN #30 tab 04/09/19 Allergies Allergy/AdvReac Type Severity Reaction Status Date / Time sulfamethoxazole Allergy Rash/Hives Verified 04/09/19 20:31 [From Bactrim] trimethoprim [From Bactrim] Allergy Rash/Hives Verified 04/09/19 20:31 Review of Systems ROS Statement: Those systems with pertinent positive or pertinent negative responses have been documented in the HPI. ROS Other: All systems not noted in ROS Statement are negative. Past Medical History Past Medical History: Thyroid Disorder Additional Past Medical History / Comment(s): UTI History of Any Multi-Drug Resistant Organisms: None Reported Past Surgical History: No Surgical Hx Reported Past Psychological History: Depression Smoking Status: Current every day smoker Past Alcohol Use History: None Reported Past Drug Use History: None Reported General Exam Limitations: no limitations General appearance: alert, in no apparent distress Head exam: Present: atraumatic, normocephalic, normal inspection Eye exam: Present: normal appearance, PERRL, EOMI. Absent: scleral icterus, conjunctival injection, periorbital swelling ENT exam: Present: normal exam, mucous membranes moist Neck exam: Present: normal inspection, full ROM. Absent: tenderness, meningismus, lymphadenopathy Respiratory exam: Present: normal lung sounds bilaterally. Absent: respiratory distress, wheezes, rales, rhonchi, stridor Cardiovascular Exam: Present: regular rate, normal rhythm, normal heart sounds. Absent: systolic murmur, diastolic murmur, rubs, gallop, clicks GI/Abdominal exam: Present: soft, tenderness (Minimal suprapubic and left pelvic tenderness. No right lower quadrant tenderness. No upper abdominal tenderness.), normal bowel sounds. Absent: distended, guarding, rebound, rigid Neurological exam: Present: alert Psychiatric exam: Present: normal affect, normal mood Course Vital Signs 04/11/19 02:36 Temperature 98.3 F Pulse Rate 104 H Respiratory 20 Rate Blood Pressure 115/74 O2 Sat by Pulse 97 Oximetry Medical Decision Making - Medical Decision Making Ultrasound report yesterday showed a large cervical cysts. No solid adnexal mass. No free fluid. There is a 1.8 cm cyst on the left ovary. Labs from yesterday were reviewed. CBC was unremarkable. CMP showed mild dehydration. Urinalysis was unremarkable. Gonorrhea and chlamydia and Trichomonas were negative. Pain is consistent with that of an ovarian cyst. Patient states she is able to follow up with an WATER FABRICATOR OPERATOR on Sunday or Sunday. She was directed to call tomorrow to ensure an appointment. Patient was given a dose of pain medication here in the emergency Department. Patient also has Tylenol 3 at home that she has not been taking. She will return if she has any worsening symptoms. Disposition Clinical Impression: Ovarian cyst, Pelvic pain Disposition: HOME SELF-CARE Condition: Good Instructions (If sedation given, give patient instructions): Ovarian Cyst (ED) Additional Instructions: Follow up with her WATER FABRICATOR OPERATOR tomorrow. Return if you have any worsening symptoms. Is patient prescribed a controlled substance at d/c from ED?: No Referrals: Valeria Calle MD [Primary Care Provider] - 1-2 days Time of Disposition: 03:16
[2019-04-11 03:23] VITALS: BP 101/68; PULSE 68; RESP 15; TEMP 98.5
== END 2019-04-11 03:25 | disposition home or self-care (01) ==
LOC: EC 02:30
DX: N83.202 Unspecified ovarian cyst, left side (principal); R10.2 Pelvic and perineal pain; E86.0 Dehydration; E07.9 Disorder of thyroid, unspecified; F17.200 Nicotine dependence, unspecified, uncomplicated; Z79.890 Hormone replacement therapy; Z88.1 Allergy status to other antibiotic agents; Z88.2 Allergy status to sulfonamides
CPT/HCPCS: 99283; 96372; J1170

== ENCOUNTER → 2019-05-30 | Outpatient (CLI) | payer OTHER ==
--- NOTE | 2019-05-30 11:10 | US ---
EXAMINATION TYPE: US transvaginal DATE OF EXAM: 05/30/2019 COMPARISON: NONE CLINICAL HISTORY: R10.2 PELVIC AND PERINEAL PAIN, N83.201 OVARIAN CYST RIGHT S. TECHNIQUE: Transvaginal (TV). Date of LMP: 05/03/19 EXAM MEASUREMENTS: Uterus: 7.0 x 3.5 x 3.9 cm Endometrial Stripe: 1.3 cm Right Ovary: 1.6 x 1.2 x 1.0 cm Left Ovary: 2.5 x 1.5 x 1.4 cm 1. Uterus: Anteverted, nabothian again noted 2. Endometrium: wnl 3. Right Ovary: wnl 4. Left Ovary: wnl 5. Bilateral Adnexa: wnl 6. Posterior cul-de-sac: wnl Large nonsimple 1.5 cm nabothian cyst redemonstrated in the cervix. Heterogeneous uterus with endomet rial stripe within normal limits for secretory phase of menstrual cycle. No free fluid. Both ovaries are identified and normal in size without concerning adnexal mass on current study. IMPRESSION: Interval resolution of lobulated thin-walled 1.8 cm cm right ovarian cyst. No new adnexal lesions seen.
== END | disposition home or self-care (01) ==
LOC: RADUSWWP 09:48
PROVIDERS: ATTEND Obstetrics & Gynecology
DX: N83.201 Unspecified ovarian cyst, right side (principal)
CPT/HCPCS: 76830

== ENCOUNTER 2019-09-07 13:50 | Emergency (ER) | payer OTHER ==
[2019-09-07 13:55] VITALS: BP 101/68
--- NOTE | 2019-09-07 14:25 | XR ---
EXAMINATION TYPE: XR chest 1V portable DATE OF EXAM: 09/07/2019 COMPARISON: 09/22/2017 HISTORY: Cough TECHNIQUE: FINDINGS: Heart and mediastinum are normal. Lungs are clear. Diaphragm is normal. Bony thorax appears normal. IMPRESSION: Normal chest. No change.
--- NOTE | 2019-09-07 14:36 | ED ---
General Adult HPI - General Chief complaint: Shortness of Breath Stated complaint: CORY Time Seen by Provider: 09/07/19 13:57 Source: patient, RN notes reviewed Mode of arrival: ambulatory Limitations: no limitations - History of Present Illness Initial comments: 39-year-old female presents to the emergency dept for a chief complaint of cough. Patient has had a cough for the past week. States that she has started to become increasingly short of breath. States that she was prescribed a Z-Jayden which she finished. She is also using inhalers at home which do not seem to be helping. Patient denies any chest pain. Patient does not know if she has had fevers. She has not had any Motrin or Tylenol today. Patient was tested for Covid 19 by her primary care provider but does not yet have results. She has no known exposures or travel history. 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 Patient states the shortness of breath has stabilized but she just does not like feeling like this anymore. Patient has no other complaints at this time including, chest pain, abdominal pain, nausea or vomiting, headache, or visual changes. - Related Data Home Medications Medication Instructions Recorded Confirmed Levothyroxine Sodium [Synthroid] 50 mcg PO DAILY 09/21/17 04/11/19 Cholecalciferol [Vitamin D3] 1,000 unit PO DAILY 03/21/18 04/11/19 Cyanocobalamin [Vitamin B-12] 500 mcg PO DAILY 03/21/18 04/11/19 Ascorbic Acid [Vitamin C] 1,000 mg PO DAILY 05/24/18 04/11/19 Previous Rx's Medication Instructions Recorded Cephalexin [Keflex] 500 mg PO Q6H 10 Days cap 05/25/18 Ibuprofen [Motrin] 600 mg PO Q8HR PRN #30 tab 04/09/19 Allergies Allergy/AdvReac Type Severity Reaction Status Date / Time sulfamethoxazole Allergy Rash/Hives Verified 09/07/19 13:57 [From Bactrim] trimethoprim [From Bactrim] Allergy Rash/Hives Verified 09/07/19 13:57 Review of Systems ROS Statement: Those systems with pertinent positive or pertinent negative responses have been documented in the HPI. ROS Other: All systems not noted in ROS Statement are negative. Past Medical History Past Medical History: Thyroid Disorder Additional Past Medical History / Comment(s): UTI History of Any Multi-Drug Resistant Organisms: None Reported Past Surgical History: No Surgical Hx Reported Past Psychological History: Depression Smoking Status: Current every day smoker Past Alcohol Use History: None Reported Past Drug Use History: None Reported General Exam Limitations: no limitations General appearance: alert, in no apparent distress Head exam: Present: atraumatic, normocephalic, normal inspection Eye exam: Present: normal appearance, PERRL, EOMI. Absent: scleral icterus, conjunctival injection, periorbital swelling ENT exam: Present: normal exam, mucous membranes moist Neck exam: Present: normal inspection, full ROM. Absent: tenderness, meningismus, lymphadenopathy Respiratory exam: Present: normal lung sounds bilaterally. Absent: respiratory distress, wheezes, rales, rhonchi, stridor Cardiovascular Exam: Present: regular rate, normal rhythm, normal heart sounds. Absent: systolic murmur, diastolic murmur, rubs, gallop, clicks GI/Abdominal exam: Present: soft, normal bowel sounds. Absent: distended, tenderness, guarding, rebound, rigid Neurological exam: Present: alert Course Vital Signs 09/07/19 09/07/19 09/07/19 13:51 14:32 14:36 Temperature 97.7 F Pulse Rate 92 Respiratory 18 22 20 Rate Blood Pressure 101/68 O2 Sat by Pulse 98 Oximetry Medical Decision Making - Medical Decision Making Vitals are stable. Patient is 98% on room air. Respiratory rate is normal. Patient is not in any respiratory distress. She is currently lying back in bed speaking without difficulty. Chest x-ray shows a normal chest. Patient is very anxious on reevaluation and tearful. She states she is very concerned about "what's going on with coronavirus." This is likely contributing even more to her shortness of breath. I had a lengthy discussion with patient regarding our findings including normal chest xray and stable vitals. I did even offer additional workup to calm her anxiety however patient refused this stating she knows it is just from her cough. Patient is feeling better after discussion. Again respiratory status has been completely stable throughout her stay. Patient will be discharged home to follow up with primary care. However I discussed low return threshold with patient and symptoms that would require her return. I discussed this case with attending Dr. Wilkins who agrees with this assessment and treatment plan. Disposition Clinical Impression: Cough Disposition: HOME SELF-CARE Condition: Good Additional Instructions: Continue your breathing treatments at home. Continue not to smoke. Follow-up with primary care. If you continue to have worsening symptoms such as worsening shortness of breath return to the emergency department immediately. Is patient prescribed a controlled substance at d/c from ED?: No Referrals: Valeria Calle MD [Primary Care Provider] - 1-2 days Time of Disposition: 14:57
[2019-09-07 14:37] VITALS: RESP 20
[2019-09-07 15:24] VITALS: PULSE 88; TEMP 98.3
== END 2019-09-07 15:20 | disposition home or self-care (01) ==
LOC: EC 13:50
DX: R05 Cough (principal); R06.02 Shortness of breath; E07.9 Disorder of thyroid, unspecified; F17.200 Nicotine dependence, unspecified, uncomplicated; Z79.890 Hormone replacement therapy; Z88.2 Allergy status to sulfonamides; Z53.29 Procedure and treatment not carried out because of patient's decision for other reasons
CPT/HCPCS: 71045; 99284

== ENCOUNTER 2019-09-14 12:15 | Emergency (ER) | payer OTHER ==
[2019-09-14 12:26] VITALS: RESP 18; TEMP 98.3
--- NOTE | 2019-09-14 12:43 | ED ---
General Adult HPI - General Chief complaint: Shortness of Breath Stated complaint: Cough, SOB gotten worse Time Seen by Provider: 09/14/19 12:15 Source: patient, RN notes reviewed, old records reviewed Mode of arrival: ambulatory Limitations: no limitations - History of Present Illness Initial comments: This is a 39-year-old female presents emergency Department complaining of being short of breath for 2 weeks. Patient states she was diagnosed with upper respiratory infection 2 weeks ago and has since been put on steroids and breathing treatments but she continued get episodes of shortness of breath. Patient states it seems to come and go. Patient states tonight it's much worse. Patient does states she has a long-standing history of anxiety. Patient denies any fever chills. Patient denies any chest pain. Patient denies any palpitations. Patient denies any abdominal pain patient has nausea vomiting or diarrhea. Patient denies any conjunctival symptoms. Patient states she had a COVID test and it was negative. - Related Data Home Medications Medication Instructions Recorded Confirmed Levothyroxine Sodium [Synthroid] 50 mcg PO DAILY 09/21/17 04/11/19 Cholecalciferol [Vitamin D3] 1,000 unit PO DAILY 03/21/18 04/11/19 Cyanocobalamin [Vitamin B-12] 500 mcg PO DAILY 03/21/18 04/11/19 Ascorbic Acid [Vitamin C] 1,000 mg PO DAILY 05/24/18 04/11/19 Previous Rx's Medication Instructions Recorded Cephalexin [Keflex] 500 mg PO Q6H 10 Days cap 05/25/18 Ibuprofen [Motrin] 600 mg PO Q8HR PRN #30 tab 04/09/19 Allergies Allergy/AdvReac Type Severity Reaction Status Date / Time sulfamethoxazole Allergy Rash/Hives Verified 09/14/19 12:16 [From Bactrim] trimethoprim [From Bactrim] Allergy Rash/Hives Verified 09/14/19 12:16 Review of Systems ROS Statement: Those systems with pertinent positive or pertinent negative responses have been documented in the HPI. ROS Other: All systems not noted in ROS Statement are negative. Past Medical History Past Medical History: Thyroid Disorder Additional Past Medical History / Comment(s): UTI History of Any Multi-Drug Resistant Organisms: None Reported Past Surgical History: No Surgical Hx Reported Past Psychological History: Depression Smoking Status: Current every day smoker Past Alcohol Use History: None Reported Past Drug Use History: None Reported General Exam - General Exam Comments Initial Comments: GENERAL: Patient is well-developed and well-nourished. Patient is nontoxic and well- hydrated and is in mild distress. ENT: Neck is soft and supple. No significant lymphadenopathy is noted. Oropharynx is clear. Moist mucous membranes. Neck has full range of motion without eliciting any pain. EYES: The sclera were anicteric and conjunctiva were pink and moist. Extraocular movements were intact and pupils were equal round and reactive to light. Eyelids were unremarkable. PULMONARY: Unlabored respirations. Good breath sounds bilaterally. No audible rales rhonchi or wheezing was noted. CARDIOVASCULAR: There is a regular rate and rhythm without any murmurs gallops or rubs. ABDOMEN: Soft and nontender with normal bowel sounds. SKIN: Skin is clear with no lesions or rashes and otherwise unremarkable. NEUROLOGIC: Patient is alert and oriented x3. Cranial nerves II through XII are grossly intact. Motor and sensory are also intact. Normal speech, volume and content. Symmetrical smile. MUSCULOSKELETAL: Normal extremities with adequate strength and full range of motion. LYMPHATICS: No significant lymphadenopathy is noted PSYCHIATRIC: Patient is mildly anxious Limitations: no limitations Course Vital Signs 09/14/19 12:17 Temperature 98.3 F Pulse Rate 81 Respiratory 18 Rate Blood Pressure 117/81 O2 Sat by Pulse 100 Oximetry Medical Decision Making - Medical Decision Making EKG shows normal sinus rhythm at 76 bpm ME interval 130 QRS is 78 QT interval 380 QTC is 427 per patient's EKG shows no ST segment elevation or depression. D-dimer was negative. Chest x-ray showed no acute abnormality. - Lab Data Lab Results 09/14/19 Range/Units 13:20 D-Dimer 0.19 (<0.60) mg/L FEU Disposition Clinical Impression: Anxiety, Persistent cough Disposition: HOME SELF-CARE Condition: Good Instructions (If sedation given, give patient instructions): Anxiety (ED), Chronic Cough (ED) Is patient prescribed a controlled substance at d/c from ED?: No Referrals: Valeria Calle MD [Primary Care Provider] - 1-2 days Time of Disposition: 14:01
--- NOTE | 2019-09-14 14:02 | XR ---
EXAMINATION TYPE: XR chest 2V DATE OF EXAM: 09/14/2019 HISTORY: Difficulty breathing . REFERENCE: Previous study dated 09/07/2019. FINDINGS: The lungs are clear. Pleural space are clear. The heart is not enlarged. IMPRESSION: NO ACTIVE INTRATHORACIC DISEASE.
[2019-09-14] MEDS ORDERED: LORazepam 1 MG TAB PO STA (14:07)
[2019-09-14 14:50] VITALS: BP 101/72; PULSE 66
== END 2019-09-14 14:48 | disposition home or self-care (01) ==
LOC: EC 12:15
DX: F41.9 Anxiety disorder, unspecified (principal); R05 Cough; E07.9 Disorder of thyroid, unspecified; F17.200 Nicotine dependence, unspecified, uncomplicated; Z79.890 Hormone replacement therapy; Z88.1 Allergy status to other antibiotic agents; Z88.2 Allergy status to sulfonamides
CPT/HCPCS: 36415; 71046; 85379; 93005; 99285

== ENCOUNTER → 2019-10-14 | Outpatient (CLI) | payer OTHER ==
--- NOTE | 2019-10-14 09:33 | XR ---
EXAMINATION TYPE: XR chest 2V DATE OF EXAM: 10/14/2019 COMPARISON: Chest x-ray September 14, 2019. HISTORY: Bronchitis with cough, shortness of breath, and wheezing. TECHNIQUE: Frontal and lateral views of the chest are obtained. FINDINGS: There is no focal air space opacity, pleural effusion, or pneumothorax seen. The cardiac silhouette size is within normal limits. The osseous structures are intact. IMPRESSION: No suspicious acute pulmonary process. No significant change from prior.
[2019-10-14 10:05] LABS: Basophils % (A) 0 %; Eosinophils # (A) 0.1 k/uL (0-0.7); Eosinophils % (A) 1 %; Lymphocytes % (A) 16 %; MCH 30.7 pg (25.0-35.0); MCHC 31.2 g/dL (31.0-37.0); MCV 98.5 fL (80.0-100.0); Mean Platelet Volume 7.6; Monocytes # (A) 0.7 k/uL (0-1.0); Monocytes % (A) 6 %; Neutrophils % (A) 75 %; Platelet Count 350 k/uL (150-450); RBC 4.57 m/uL (3.80-5.40); RDW 13.6 % (11.5-15.5)
[2019-10-14 10:13] LABS: ALT 12 U/L (4-34); AST 15 U/L (14-36); African American GFR (CKD) >90 (>60 ml/min/1.73 sqM); Albumin 4.3 g/dL (3.5-5.0); Alkaline Phosphatase 59 U/L (38-126); Anion Gap 10 mmol/L; Blood Urea Nitrogen 18 mg/dL (7-17); Calcium 9.4 mg/dL (8.4-10.2); Carbon Dioxide 25 mmol/L (22-30); Chloride 103 mmol/L (98-107); Glucose 76 mg/dL (74-99); Non-African American GFR(CKD) 88 (>60 ml/min/1.73 sqM); Potassium 3.8 mmol/L (3.5-5.1); Sodium 138 mmol/L (137-145); Total Bilirubin 0.2 mg/dL (0.2-1.3); Total Protein 7.4 g/dL (6.3-8.2)
[2019-10-14 10:29] LABS: T4, Free (Free Thyroxine) 0.98 ng/dL (0.78-2.19)
== END | disposition home or self-care (01) ==
LOC: RADXRMAIN 08:09
PROVIDERS: ATTEND Internal Medicine
DX: R05 Cough (principal); R06.02 Shortness of breath
CPT/HCPCS: 36415; 71046; 80053; 84439; 84443; 84481; 85025

== ENCOUNTER → 2019-12-15 | Outpatient (CLI) | payer OTHER ==
--- NOTE | 2019-12-15 09:23 | US ---
EXAMINATION TYPE: US transvaginal DATE OF EXAM: 12/15/2019 COMPARISON: US CLINICAL HISTORY: N91.4 OLIGOMENORRHEA. Pt states irregular menses, weight gain TECHNIQUE: Transvaginal (TV). Transvaginal sonographic images of the pelvis were acquired. Date of LMP: 12/12/2019 EXAM MEASUREMENTS: Uterus: 8.1 x 3.4 x 5.3 cm Endometrial Stripe: 0.6 cm Right Ovary: 2.6 x 2.1 x 2.9 cm Left Ovary: 2.9 x 2.9 x 1.3 cm 1. Uterus: Anteverted Heterogeneous with Nabothian cyst within cervix= 1.7 cm essentially unchange d from previous 2. Endometrium: Scant amount of fluid within canal with small calcifications scattered within endo 3. Right Ovary: Small Cyst= 1.8 x 1.4 cm 4. Left Ovary: Small exophytic cyst= 1.5 x 1.2 x 1.2 cm 5. Bilateral Adnexa: wnl 6. Posterior cul-de-sac: wnl IMPRESSION: 1. Probable functional ovarian cyst which can be confirmed with follow-up study in 6 weeks. 2. Cervical nabothian cyst with internal debris.
== END | disposition home or self-care (01) ==
LOC: RADUSMAIN 08:09
PROVIDERS: ATTEND Obstetrics & Gynecology
DX: N88.8 Other specified noninflammatory disorders of cervix uteri (principal)
CPT/HCPCS: 76830

== ENCOUNTER 2019-12-22 19:43 | Emergency (ER) | payer OTHER ==
[2019-12-22 19:48] VITALS: BP 119/77; PULSE 59; RESP 16; TEMP 98.1
[2019-12-22] MEDS ORDERED: PROPARACAINE 0.5% OPHTH DROPS 15 ML BTL LEFT EYE STA (19:52)
[2019-12-22] MEDS ORDERED: diphenhydrAMINE 50 MG CAP PO STA (20:14)
[2019-12-22] MEDS ORDERED: FAMOTIDINE 20 MG TAB PO STA (20:14)
[2019-12-22] MEDS ORDERED: predniSONE 50 MG TAB PO STA (20:14)
[2019-12-22] MEDS ORDERED: FLUORESCEIN STRIPS 1 MG STRIP LEFT EYE ONE (20:15)
[2019-12-22] MEDS ORDERED: ACET/COD 300 MG/30 MG STARTER PACK 6 TAB BTL PO STA (20:16)
[2019-12-22] MEDS ORDERED: TOBRAMYCIN 0.3% OPHTH DROPS 5 ML BTL LEFT EYE STA (20:59)
--- NOTE | 2019-12-22 21:00 | ED ---
Eye Problem HPI - General Chief complaint: Eye Problems Stated complaint: Eye Pain Time Seen by Provider: 12/22/19 19:52 Source: patient Mode of arrival: ambulatory Limitations: no limitations - History of Present Illness Initial comments: 39-year-old female patient presents to the emergency department today for evaluation of left eye pain. Patient states that prior to arrival she was sitting on her couch, states that she was itching her eye when she fell immediate pain and seemed to swell. Patient states she went down and showed her significant other, he states that the eyelid looked really weird so they presented here immediately for evaluation. Patient states she is still having pain to the left eye. Denies any drainage. States it feels like there is something beneath the upper lid. She does report some light sensitivity initially. Denies any history of similar symptoms. Denies any history of eye surgery. Denies any other concerns. - Related Data Home Medications Medication Instructions Recorded Confirmed Levothyroxine Sodium [Synthroid] 50 mcg PO DAILY 09/21/17 12/22/19 Albuterol Inhaler [Ventolin Hfa 1 puff INHALATION RT-Q6H PRN 12/22/19 12/22/19 Inhaler] Ergocalciferol [Vitamin D2] 50,000 unit PO Q14D 12/22/19 12/22/19 FLUoxetine HCL [PROzac] 20 mg PO DAILY 12/22/19 12/22/19 Fluticasone Propion/Salmeterol 1 puff INHALATION RT-BID 12/22/19 12/22/19 [Wixela 250-50 Inhub] Gabapentin [Neurontin] 200 mg PO TID 12/22/19 12/22/19 Ibuprofen [Motrin] 600 mg PO AC-TID PRN 12/22/19 12/22/19 Ipratropium-Albuterol Nebulize 3 ml INHALATION RT-QID PRN 12/22/19 12/22/19 [Duoneb 0.5 mg-3 mg/3 ml Soln] Montelukast [Singulair] 10 mg PO HS 12/22/19 12/22/19 hydrOXYzine HCL [Atarax] 25 mg PO Q8H PRN 12/22/19 12/22/19 lamoTRIgine [LaMICtal] 100 mg PO DAILY 12/22/19 12/22/19 traZODone HCL [Desyrel] 100 mg PO HS 12/22/19 12/22/19 valACYclovir HCL [Valtrex] 1,000 mg PO DAILY 12/22/19 12/22/19 Allergies Allergy/AdvReac Type Severity Reaction Status Date / Time sulfamethoxazole Allergy Rash/Hives Verified 12/22/19 21:02 [From Bactrim] trimethoprim [From Bactrim] Allergy Rash/Hives Verified 12/22/19 21:02 Review of Systems ROS Statement: Those systems with pertinent positive or pertinent negative responses have been documented in the HPI. ROS Other: All systems not noted in ROS Statement are negative. Past Medical History Past Medical History: Thyroid Disorder Additional Past Medical History / Comment(s): UTI History of Any Multi-Drug Resistant Organisms: None Reported Past Surgical History: No Surgical Hx Reported Past Psychological History: Depression Past Alcohol Use History: None Reported Past Drug Use History: None Reported General Exam Limitations: no limitations General appearance: alert, in no apparent distress, other (This is a well- developed, well-nourished adult female patient in mild distress related to pain. Vital signs upon presentation are temperature 98.1F, pulse 59, respirations 16, blood pressure 119/77, pulse ox 100% on room air.) Eye exam: Present: normal appearance, PERRL, EOMI, other (Eyelids were everted, no evidence for foreign body or injury. Fluorescein stain with Wood's lamp examination was performed, negative for signs of uptake, negative paty's sign. Pressure was 15 mmHg to the left eye). Absent: scleral icterus, conjunctival injection, periorbital swelling, periorbital tenderness Respiratory exam: Present: normal lung sounds bilaterally. Absent: respiratory distress, wheezes, rales, rhonchi, stridor Cardiovascular Exam: Present: regular rate, normal rhythm, normal heart sounds. Absent: systolic murmur, diastolic murmur, rubs, gallop, clicks Neurological exam: Present: alert, oriented X3, CN II-XII intact Psychiatric exam: Present: normal affect, normal mood Skin exam: Present: warm, dry, intact, normal color. Absent: rash Course Vital Signs 12/22/19 19:46 Temperature 98.1 F Pulse Rate 59 L Respiratory 16 Rate Blood Pressure 119/77 O2 Sat by Pulse 100 Oximetry Medical Decision Making - Medical Decision Making 39-year-old female patient presented to the emergency department today for evaluation of left eye pain. Physical examination was relatively unremarkable. Eyelids were inverted, no evidence for foreign body or injury. Did perform fluo rescein stain with Wood's lamp examination, no evidence for uptake, negative Paty sign. Pressure to the eye was 15 mmHg. Patient was given pain medication here in the emergency department. She is starting to have improvement of symptoms. We will give antibiotic drop just in case there is an injury that we were unable to see. She'll be discharged to follow-up with ophthalmology in 1 day of her symptoms are improved. Return parameters were discussed in detail. She verbalizes understanding and agrees with this plan. Disposition Clinical Impression: Left eye pain Disposition: HOME SELF-CARE Condition: Good Instructions (If sedation given, give patient instructions): Tobramycin (Into the eye), Eye Pain (ED) Additional Instructions: 21 drop to the left eye 4 times daily while awake. Follow-up with ophthalmology in 24 hours if you're symptoms aren't improved. Follow-up through primary care physician for recheck in 1-2 days. Return to the emergency department immediately for any new, worsening, or concerning symptoms. Is patient prescribed a controlled substance at d/c from ED?: No Referrals: Valeria Calle MD [Primary Care Provider] - 1-2 days Clarisse Conde MD [STAFF PHYSICIAN] - 1-2 days Time of Disposition: 21:00
== END 2019-12-22 21:30 | disposition home or self-care (01) ==
LOC: EC 19:43
DX: H57.12 Ocular pain, left eye (principal); E07.9 Disorder of thyroid, unspecified; F32.9 Major depressive disorder, single episode, unspecified; Z79.890 Hormone replacement therapy; Z79.899 Other long term (current) drug therapy; Z79.51 Long term (current) use of inhaled steroids; Z88.1 Allergy status to other antibiotic agents; Z88.2 Allergy status to sulfonamides
CPT/HCPCS: 99283; J7512

== ENCOUNTER 2019-12-30 17:49 | Emergency (ER) | payer OTHER ==
[2019-12-30] MEDS ORDERED: SODIUM CHLORIDE 0.9% 1,000 ML IV ONE (18:14)
[2019-12-30] MEDS ORDERED: ALBUTEROL NEBULIZED 2.5 MG/3 ML INHALATION STA (18:14)
[2019-12-30] MEDS ORDERED: LORazepam 2 MG/ML INJ IV STA ×2 (18:14)
[2019-12-30] MEDS ORDERED: methylPREDNISolone SOD SUCCI 125 MG/2 ML VIAL IV STA (18:15)
[2019-12-30] MEDS ORDERED: FAMOTIDINE 20 MG/2 ML VIAL IV STA (18:40)
[2019-12-30 19:05] LABS: Basophils % (A) 0 %; Eosinophils # (A) 0.3 k/uL (0-0.7); Eosinophils % (A) 3 %; HCT 37.4 % (34.0-46.0); HGB 12.8 gm/dL (11.4-16.0); Lymphocytes # (A) 3.4 k/uL (1.0-4.8); Lymphocytes % (A) 39 %; MCH 32.7 pg (25.0-35.0); MCHC 34.4 g/dL (31.0-37.0); Mean Platelet Volume 7.1; Monocytes # (A) 0.4 k/uL (0-1.0); Monocytes % (A) 4 %; Neutrophils # (A) 4.5 k/uL (1.3-7.7); Neutrophils % (A) 52 %; Platelet Count 294 k/uL (150-450); RBC 3.93 m/uL (3.80-5.40); RDW 13.6 % (11.5-15.5); WBC 8.7 k/uL (3.8-10.6)
[2019-12-30 19:32] LABS: ALT 14 U/L (4-34); AST 17 U/L (14-36); African American GFR (CKD) >90 (>60 ml/min/1.73 sqM); Albumin 4.3 g/dL (3.5-5.0); Alkaline Phosphatase 42 U/L (38-126); Anion Gap 9 mmol/L; Blood Urea Nitrogen 17 mg/dL (7-17); Calcium 8.9 mg/dL (8.4-10.2); Carbon Dioxide 21 mmol/L (22-30); Chloride 106 mmol/L (98-107); Glucose 88 mg/dL (74-99); Non-African American GFR(CKD) 83 (>60 ml/min/1.73 sqM); Potassium 3.6 mmol/L (3.5-5.1); Sodium 136 mmol/L (137-145); Total Bilirubin 0.3 mg/dL (0.2-1.3); Total Protein 6.9 g/dL (6.3-8.2)
[2019-12-30 19:48] VITALS: TEMP 98.1
--- NOTE | 2019-12-30 19:56 | ED ---
Allergic Reaction HPI - General Chief complaint: Allergic Reaction Stated complaint: Allergic reaction Time Seen by Provider: 12/30/19 17:53 Source: EMS, RN notes reviewed, old records reviewed Limitations: no limitations - History of Present Illness Initial Comments: Patient is a 39-year-old female presents emergency room today for concerns for throat pain and difficulty in swallowing. She thought initially it is related to ALLERGIC reaction and she had aloe on her face and neck and actually swallowed some of this. Patient states that she also took some large pills and vitamins way prior to this starting. She states that she has no major difficulty breathing. No hives or itching skin. - Related Data Home Medications Medication Instructions Recorded Confirmed Levothyroxine Sodium [Synthroid] 50 mcg PO DAILY 09/21/17 12/22/19 Albuterol Inhaler [Ventolin Hfa 1 puff INHALATION RT-Q6H PRN 12/22/19 12/22/19 Inhaler] Ergocalciferol [Vitamin D2] 50,000 unit PO Q14D 12/22/19 12/22/19 FLUoxetine HCL [PROzac] 20 mg PO DAILY 12/22/19 12/22/19 Fluticasone Propion/Salmeterol 1 puff INHALATION RT-BID 12/22/19 12/22/19 [Wixela 250-50 Inhub] Gabapentin [Neurontin] 200 mg PO TID 12/22/19 12/22/19 Ibuprofen [Motrin] 600 mg PO AC-TID PRN 12/22/19 12/22/19 Ipratropium-Albuterol Nebulize 3 ml INHALATION RT-QID PRN 12/22/19 12/22/19 [Duoneb 0.5 mg-3 mg/3 ml Soln] Montelukast [Singulair] 10 mg PO HS 12/22/19 12/22/19 hydrOXYzine HCL [Atarax] 25 mg PO Q8H PRN 12/22/19 12/22/19 lamoTRIgine [LaMICtal] 100 mg PO DAILY 12/22/19 12/22/19 traZODone HCL [Desyrel] 100 mg PO HS 12/22/19 12/22/19 valACYclovir HCL [Valtrex] 1,000 mg PO DAILY 12/22/19 12/22/19 Previous Rx's Medication Instructions Recorded Lidocaine Viscous 2% [Xylocaine 15 ml MUCOUS MEM BID #2 cup 12/30/19 Viscous] predniSONE [Deltasone] 20 mg PO DIRECTED #12 tab 12/30/19 Allergies Allergy/AdvReac Type Severity Reaction Status Date / Time sulfamethoxazole Allergy Rash/Hives Verified 12/22/19 21:02 [From Bactrim] trimethoprim [From Bactrim] Allergy Rash/Hives Verified 12/22/19 21:02 Review of Systems ROS Statement: Those systems with pertinent positive or pertinent negative responses have been documented in the HPI. ROS Other: All systems not noted in ROS Statement are negative. Past Medical History Past Medical History: Asthma, Thyroid Disorder Additional Past Medical History / Comment(s): UTI History of Any Multi-Drug Resistant Organisms: None Reported Past Surgical History: No Surgical Hx Reported Past Psychological History: Anxiety, Depression Smoking Status: Current every day smoker Past Alcohol Use History: None Reported Past Drug Use History: None Reported General Exam - General Exam Comments Initial Comments: 39 year old female, appears anxious. Limitations: no limitations General appearance: alert, anxious Head exam: Present: atraumatic, normocephalic, normal inspection Eye exam: Present: normal appearance, PERRL, EOMI. Absent: scleral icterus, conjunctival injection, periorbital swelling ENT exam: Present: normal exam, mucous membranes moist, other (No tongue swelling, uvula edema or pharyngeal erythema) Neck exam: Present: normal inspection. Absent: tenderness, meningismus, lymphadenopathy Respiratory exam: Present: normal lung sounds bilaterally. Absent: respiratory distress, wheezes, rales, rhonchi, stridor Cardiovascular Exam: Present: regular rate, normal rhythm, normal heart sounds. Absent: systolic murmur, diastolic murmur, rubs, gallop, clicks GI/Abdominal exam: Present: soft, normal bowel sounds. Absent: distended, te nderness, guarding, rebound, rigid Course Vital Signs 12/30/19 12/30/19 12/30/19 17:54 18:36 18:42 Temperature 99.4 F Pulse Rate 87 86 87 Respiratory 20 Rate Blood Pressure 113/82 O2 Sat by Pulse 98 Oximetry 12/30/19 12/30/19 19:45 21:27 Temperature 98.1 F Pulse Rate 89 97 Respiratory 16 17 Rate Blood Pressure 104/72 108/59 O2 Sat by Pulse 99 98 Oximetry Medical Decision Making - Medical Decision Making 39 year old female presents with throat swelling sensation after taking vitamins and accidentally swallowing aloe. PAtient is able to tolerate secretions and no airway compromise. She initially appeared quite anxious, was given IV ativan and solumedrol, pepcid, and benadryl. Patient has normal labs, soft tissue neck exay shows palatine tonsil edema and narrowing of nasalpharyngeal airway. She has improvement of dysphagia feeling after medication. She had symptoms start suddenly and has no pharyngeal erythema or exudate for infectious process. Discused using magic mouthwash and steroids. Discussed follow up with PCP. - Lab Data Result diagrams: 12/30/19 18:37 12/30/19 18:37 Lab Results 12/30/19 12/30/19 Range/Units 18:37 18:37 WBC 8.7 (3.8-10.6) k/uL RBC 3.93 (3.80-5.40) m/uL Hgb 12.8 (11.4-16.0) gm/dL Hct 37.4 (34.0-46.0) % MCV 95.0 (80.0-100.0) fL MCH 32.7 (25.0-35.0) pg MCHC 34.4 (31.0-37.0) g/dL RDW 13.6 (11.5-15.5) % Plt Count 294 (150-450) k/uL Neutrophils % 52 % Lymphocytes % 39 % Monocytes % 4 % Eosinophils % 3 % Basophils % 0 % Neutrophils # 4.5 (1.3-7.7) k/uL Lymphocytes # 3.4 (1.0-4.8) k/uL Monocytes # 0.4 (0-1.0) k/uL Eosinophils # 0.3 (0-0.7) k/uL Basophils # 0.0 (0-0.2) k/uL Sodium 136 L (137-145) mmol/L Potassium 3.6 (3.5-5.1) mmol/L Chloride 106 (98-107) mmol/L Carbon Dioxide 21 L (22-30) mmol/L Anion Gap 9 mmol/L BUN 17 (7-17) mg/dL Creatinine 0.89 (0.52-1.04) mg/dL Est GFR (CKD-EPI)AfAm >90 (>60 ml/min/1.73 sqM) Est GFR (CKD-EPI)NonAf 83 (>60 ml/min/1.73 sqM) Glucose 88 (74-99) mg/dL Calcium 8.9 (8.4-10.2) mg/dL Total Bilirubin 0.3 (0.2-1.3) mg/dL AST 17 (14-36) U/L ALT 14 (4-34) U/L Alkaline Phosphatase 42 (38-126) U/L Total Protein 6.9 (6.3-8.2) g/dL Albumin 4.3 (3.5-5.0) g/dL - Radiology Data Radiology results: report reviewed Soft tissue neck shows swelling of palantine tonsils and nasal pharyngeal airway narrowing. Disposition Clinical Impression: Dysphagia Disposition: HOME SELF-CARE Condition: Good Instructions (If sedation given, give patient instructions): Dysphagia (ED) Additional Instructions: Follow up with PCP. Take medication of steroids as prescribed. Return to ED. Prescriptions: predniSONE [Deltasone] 20 mg PO DIRECTED #12 tab Lidocaine Viscous 2% [Xylocaine Viscous] 15 ml MUCOUS MEM BID #2 cup Is patient prescribed a controlled substance at d/c from ED?: No Referrals: Stacy Loyd FNPBC [Primary Care Provider] - 1-2 days Time of Disposition: 21:29
--- NOTE | 2019-12-30 20:53 | XR ---
EXAMINATION TYPE: XR soft tissue neck DATE OF EXAM: 12/30/2019 TECHNIQUE: Frontal and lateral views of the neck were obtained. HISTORY: dysphagia COMPARISON: None FINDINGS: There is prominence of the palatine tonsils with narrowing of the posterior nasopharyngeal airway. The cervical spine prevertebral soft tissue is unremarkable. The epiglottis silhouette is un remarkable. The cervical spine is visualized from C1 through C6 on lateral view, it is satisfactory i n alignment without evidence of acute fracture or dislocation. The C1-C2 articulation is within ari l limits. IMPRESSION: Prominence of the palatine tonsils with narrowing of the posterior nasopharyngeal airway.
[2019-12-30] MEDS ORDERED: MAG HYDROX/AL HYDROX/SIMETH 30 ML, HYOSCYAMINE ELIXIR 10 ML, LIDOCAINE VISCOUS 2% 10 ML PO STA ×3 (21:20)
[2019-12-30 21:29] VITALS: BP 108/59; PULSE 97; RESP 17
[2019-12-31] MEDS ORDERED: FAMOTIDINE 20 MG/2 ML VIAL IV SCH (09:00)
== END 2019-12-30 21:41 | disposition home or self-care (01) ==
LOC: EC 17:49
DX: R13.10 Dysphagia, unspecified (principal); R07.0 Pain in throat; J45.909 Unspecified asthma, uncomplicated; E07.9 Disorder of thyroid, unspecified; F41.9 Anxiety disorder, unspecified; F32.9 Major depressive disorder, single episode, unspecified; F17.200 Nicotine dependence, unspecified, uncomplicated; Z79.890 Hormone replacement therapy; Z88.2 Allergy status to sulfonamides
CPT/HCPCS: 36415; 94640; 80053; 85025; 70360; 99285; 96374; 96375 ×2; 96361 ×3; J2060; J2930

== ENCOUNTER → 2020-01-01 | Outpatient (CLI) | payer OTHER ==
[2020-01-01 11:48] LABS: African American GFR (CKD) 82.8 (60.0-200.0); Albumin 4.5 g/dL (3.80-4.90); Albumin/Globulin Ratio 2.05 (1.60-3.17); Anion Gap 8.9 mmol/L (4.00-12.00); Calcium 9.3 mg/dL (8.7-10.3); Carbon Dioxide 23.1 mmol/L (21.6-31.8); Globulin 2.2 g/dL (1.6-3.3); Non-African American GFR(CKD) 71.4 (60.0-200.0); Potassium 3.9 mmol/L (3.5-5.5); Total Bilirubin 0.3 mg/dL (0.3-1.2); Total Protein 6.7 g/dL (6.2-8.2)
[2020-01-01 11:56] LABS: T4, Free (Free Thyroxine) 1.3 ng/dL (0.80-1.80); Thyroid Peroxidase Antibodies 28.7 U/mL (0.0-60.0)
[2020-01-01 15:58] LABS: Hemoglobin A1C 5.6 % (4.0-6.0)
== END | disposition home or self-care (01) ==
LOC: LABWHC1 07:31
PROVIDERS: ATTEND Internal Medicine
DX: J45.909 Unspecified asthma, uncomplicated (principal); R53.83 Other fatigue; R63.5 Abnormal weight gain
CPT/HCPCS: 36415; 80053; 83036; 84439; 84443; 84481; 86376; 86769; 86800

== ENCOUNTER 2020-06-25 13:46 | Emergency (ER) | payer OTHER ==
[2020-06-25 13:53] VITALS: BP 110/76; PULSE 65; RESP 18; TEMP 98.6
--- NOTE | 2020-06-25 14:03 | ED ---
Lower Extremity Injury HPI - General Chief Complaint: Extremity Injury, Lower Stated Complaint: R Foot Pain Time Seen by Provider: 06/25/20 13:59 Source: patient Mode of arrival: ambulatory Limitations: no limitations - History of Present Illness Initial Comments: 40-year-old female presenting to emergency with a chief complaint of right foot pain. Patient reports pain started approximately one week ago and is gradually increasing severity. Patient reports the pain is located near the second and third and fourth MTP joints of the right foot. Patient denies any injury. States the pain is worse on the dorsal aspect of the foot. She also reports the pain is exacerbated with weightbearing. Denies any erythema, ecchymosis or swelling in the region. Denies taking medication to relieve the symptoms. States the pain is alleviated rest. - Related Data Home Medications Medication Instructions Recorded Confirmed Levothyroxine Sodium [Synthroid] 50 mcg PO DAILY 09/21/17 12/22/19 Albuterol Inhaler [Ventolin Hfa 1 puff INHALATION RT-Q6H PRN 12/22/19 12/22/19 Inhaler] Ergocalciferol [Vitamin D2] 50,000 unit PO Q14D 12/22/19 12/22/19 FLUoxetine HCL [PROzac] 20 mg PO DAILY 12/22/19 12/22/19 Fluticasone Propion/Salmeterol 1 puff INHALATION RT-BID 12/22/19 12/22/19 [Wixela 250-50 Inhub] Gabapentin [Neurontin] 200 mg PO TID 12/22/19 12/22/19 Ibuprofen [Motrin] 600 mg PO AC-TID PRN 12/22/19 12/22/19 Ipratropium-Albuterol Nebulize 3 ml INHALATION RT-QID PRN 12/22/19 12/22/19 [Duoneb 0.5 mg-3 mg/3 ml Soln] Montelukast [Singulair] 10 mg PO HS 12/22/19 12/22/19 hydrOXYzine HCL [Atarax] 25 mg PO Q8H PRN 12/22/19 12/22/19 lamoTRIgine [LaMICtal] 100 mg PO DAILY 12/22/19 12/22/19 traZODone HCL [Desyrel] 100 mg PO HS 12/22/19 12/22/19 valACYclovir HCL [Valtrex] 1,000 mg PO DAILY 12/22/19 12/22/19 Previous Rx's Medication Instructions Recorded Lidocaine Viscous 2% [Xylocaine 15 ml MUCOUS MEM BID #2 cup 12/30/19 Viscous] predniSONE [Deltasone] 20 mg PO DIRECTED #12 tab 12/30/19 Allergies Allergy/AdvReac Type Severity Reaction Status Date / Time sulfamethoxazole Allergy Rash/Hives Verified 06/25/20 13:53 [From Bactrim] trimethoprim [From Bactrim] Allergy Rash/Hives Verified 06/25/20 13:53 Review of Systems ROS Statement: Those systems with pertinent positive or pertinent negative responses have been documented in the HPI. ROS Other: All systems not noted in ROS Statement are negative. Past Medical History Past Medical History: Asthma, Thyroid Disorder Additional Past Medical History / Comment(s): UTI History of Any Multi-Drug Resistant Organisms: None Reported Past Surgical History: No Surgical Hx Reported Past Psychological History: Anxiety, Depression Smoking Status: Current every day smoker Past Alcohol Use History: None Reported Past Drug Use History: None Reported General Exam Limitations: no limitations General appearance: alert, in no apparent distress Head exam: Present: atraumatic, normocephalic, normal inspection Eye exam: Present: normal appearance, PERRL, EOMI Pupils: Present: normal accommodation ENT exam: Present: normal exam, normal oropharynx, mucous membranes moist Neck exam: Present: normal inspection, full ROM Respiratory exam: Present: normal lung sounds bilaterally Cardiovascular Exam: Present: regular rate, normal rhythm, normal heart sounds Extremities exam: Present: normal inspection, full ROM, tenderness (Tenderness between the second third and fourth MTP joints of her right foot.), normal capillary refill, other (Palpable DP and PT). Absent: pedal edema, joint swelling, calf tenderness Back exam: Present: normal inspection, full ROM. Absent: tenderness, CVA tenderness (R), CVA tenderness (L) Neurological exam: Present: alert, oriented X3 Psychiatric exam: Present: normal affect, normal mood Skin exam: Present: warm, dry, intact, normal color Course Vital Signs 06/25/20 13:49 Temperature 98.6 F Pulse Rate 65 Respiratory 18 Rate Blood Pressure 110/76 O2 Sat by Pulse 100 Oximetry Medical Decision Making - Medical Decision Making 40-year-old female presenting to emergency Department with a chief complaint right foot pain. On physical examination, patient has tenderness between second and third and fourth MTP joints of the right foot. Thurman's neuroma is a differential possible causes of the discomfort. X-rays unremarkable. Patient was advised to follow-up with a recruiting internship. She is otherwise neurovascularly intact. Return parameters discussed with patient was understanding and agreeable. Case discussed physician. Disposition Clinical Impression: Right foot pain Disposition: HOME SELF-CARE Condition: Stable Instructions (If sedation given, give patient instructions): Metatarsalgia (DC) Additional Instructions: Follow-up with a recruiting internship. Alternate between Tylenol and Motrin for pain control. Return to emergency department if symptoms worsen. Is patient prescribed a controlled substance at d/c from ED?: No Referrals: Curt Meza MD [Primary Care Provider] - 1-2 days Eris Saleh DPM [STAFF PHYSICIAN] - 1-2 days Time of Disposition: 14:47
--- NOTE | 2020-06-25 14:37 | XR ---
EXAMINATION TYPE: XR foot complete RT DATE OF EXAM: 06/25/2020 COMPARISON: NONE HISTORY: Pain TECHNIQUE: Three views are submitted. FINDINGS: The osseous structures are intact. There is no acute fracture or dislocation. Joint spaces are p reserved. IMPRESSION: 1. No acute fracture or dislocation. If symptoms persist, follow-up exam in 7 to 10 days could be ob tained.
== END 2020-06-25 14:58 | disposition home or self-care (01) ==
LOC: EC 13:46
DX: M79.671 Pain in right foot (principal); J45.909 Unspecified asthma, uncomplicated; E07.9 Disorder of thyroid, unspecified; F41.9 Anxiety disorder, unspecified; F32.9 Major depressive disorder, single episode, unspecified; F17.200 Nicotine dependence, unspecified, uncomplicated; Z79.51 Long term (current) use of inhaled steroids; Z79.890 Hormone replacement therapy; Z79.899 Other long term (current) drug therapy; Z88.2 Allergy status to sulfonamides; Z88.1 Allergy status to other antibiotic agents
CPT/HCPCS: 99283

== ENCOUNTER → 2020-06-28 | Outpatient (CLI) | payer OTHER ==
[2020-06-28 19:46] LABS: T4, Free (Free Thyroxine) 1.2 ng/dL (0.80-1.80)
[2020-06-28 19:56] LABS: Thyroid Peroxidase Antibodies <28.0 U/mL (0.0-60.0)
== END | disposition home or self-care (01) ==
LOC: LABWHC1 10:22
PROVIDERS: ATTEND Internal Medicine
DX: E03.9 Hypothyroidism, unspecified (principal)
CPT/HCPCS: 36415; 84439; 84443; 84481; 86376; 86800

== ENCOUNTER → 2020-07-05 | Outpatient (CLI) | payer OTHER ==
--- NOTE | 2020-07-05 14:33 | US ---
EXAMINATION TYPE: US thyroid st tissue head/neck DATE OF EXAM: 07/05/2020 COMPARISON: NONE CLINICAL HISTORY: R94.6 Abnormal results of thyroid function studies. abn labs, patient states CT in [place] showed 5 mm lesion GLAND SIZE: Right Lobe: 5.0 x 1.5 x 1.5 cm Overall Parenchyma: homogenous Left Lobe: 4.2 x 1.5 x 1.0 cm Overall Parenchyma: homogeneous Isthmus Thickness: 0.2 cm NODULES RIGHT: # of nodules measured on right: 0 LEFT: # of nodules measured on left: 1 1. 0.8 X 0.5 x 0.4 cm cystic or almost completely cystic, anechoic nodule, which is wider than tall , with smooth margins, without echogenic foci. 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 IMPRESSION: 1. Right thyroid lobe is enlarged. 2. Cystic nodule left thyroid lobe measures less than 1 cm.
== END | disposition home or self-care (01) ==
LOC: RADUSWWP 13:42
PROVIDERS: ATTEND Internal Medicine
DX: E04.1 Nontoxic single thyroid nodule (principal)
CPT/HCPCS: 76536

== ENCOUNTER 2020-08-14 18:06 | Observation (INO) | payer OTHER ==
--- NOTE | 2020-08-14 18:48 | ED ---
General Adult HPI - General Chief complaint: Alcohol Stated complaint: Withdrawal Time Seen by Provider: 08/14/20 18:38 Source: patient, family Mode of arrival: wheelchair Limitations: no limitations - History of Present Illness Initial comments: Dictation was produced using [employer] dictation software. please excuse any grammatical, word or spelling errors. This patient was cared for during a federal and state declared state of emergency secondary to Covid 19 Chief Complaint: 40-year-old female presents with alcohol withdrawal History of Present Illness: 40-year-old female she presents with her best friend. Patient brought by her best friend for concerns of alcohol withdrawal. He did have an alcoholic beverage 2 hours prior to arrival she drinks a fifth of vodka a day. Patient denies any history of seizures from alcohol withdrawal. She's never been admitted to the ICU however she states that she has been admitted to the hospital for alcohol withdrawal in the past. She started having withdrawal symptoms today when she drank 2 hours ago. The ROS documented in this emergency department record has been reviewed and c onfirmed by me. Those systems with pertinent positive or negative responses have been documented in the HPI. All other systems are other negative and/or noncontributory. PHYSICAL EXAM: General Impression: Alert and oriented x3, not in acute distress HEENT: Normocephalic atraumatic, extra-ocular movements intact, pupils equal and reactive to light bilaterally, mucous membranes moist. Cardiovascular: Heart regular rate and rhythm Chest: Able to complete full sentences, no retractions, no tachypnea Abdomen: abdomen soft, non-tender, non-distended, no organomegaly Musculoskeletal: Pulses present and equal in all extremities, no peripheral edema Motor: no focal deficits noted Neurological: CN II-XII grossly intact, no focal motor or sensory deficits noted Skin: Intact with no visualized rashes Psych: Normal affect and mood ED course: 40-year-old female presents with best friend for concerns of alcohol withdrawal. Vital Signs upon arrival are within acceptable limits. Laboratory evaluation obtained. CBC unremarkable. Metabolic panel is negative. Serum alcohol is 396. Patient be admitted for acute EtOH intoxication. Case discussed with Dr. Shell is willing to accept patient's care. EKG interpretation: Ventricular rate 87, normal sinus rhythm,. 124, QRS 80, QTC 483. No SD prolongation, no QTC prolongation, no ST or T-wave changes noted. . Overall, this EKG is unremarkable - Related Data Home Medications Medication Instructions Recorded Confirmed Levothyroxine Sodium [Synthroid] 50 mcg PO DAILY 09/21/17 12/22/19 Albuterol Inhaler [Ventolin Hfa 1 puff INHALATION RT-Q6H PRN 12/22/19 12/22/19 Inhaler] Ergocalciferol [Vitamin D2] 50,000 unit PO Q14D 12/22/19 12/22/19 FLUoxetine HCL [PROzac] 20 mg PO DAILY 12/22/19 12/22/19 Fluticasone Propion/Salmeterol 1 puff INHALATION RT-BID 12/22/19 12/22/19 [Wixela 250-50 Inhub] Gabapentin [Neurontin] 200 mg PO TID 12/22/19 12/22/19 Ibuprofen [Motrin] 600 mg PO AC-TID PRN 12/22/19 12/22/19 Ipratropium-Albuterol Nebulize 3 ml INHALATION RT-QID PRN 12/22/19 12/22/19 [Duoneb 0.5 mg-3 mg/3 ml Soln] Montelukast [Singulair] 10 mg PO HS 12/22/19 12/22/19 hydrOXYzine HCL [Atarax] 25 mg PO Q8H PRN 12/22/19 12/22/19 lamoTRIgine [LaMICtal] 100 mg PO DAILY 12/22/19 12/22/19 traZODone HCL [Desyrel] 100 mg PO HS 12/22/19 12/22/19 valACYclovir HCL [Valtrex] 1,000 mg PO DAILY 12/22/19 12/22/19 Previous Rx's Medication Instructions Recorded Lidocaine Viscous 2% [Xylocaine 15 ml MUCOUS MEM BID #2 cup 12/30/19 Viscous] predniSONE [Deltasone] 20 mg PO DIRECTED #12 tab 12/30/19 Allergies Allergy/AdvReac Type Severity Reaction Status Date / Time sulfamethoxazole Allergy Rash/Hives Verified 08/14/20 18:11 [From Bactrim] trimethoprim [From Bactrim] Allergy Rash/Hives Verified 08/14/20 18:11 Review of Systems ROS Statement: Those systems with pertinent positive or pertinent negative responses have been documented in the HPI. ROS Other: All systems not noted in ROS Statement are negative. Past Medical History Past Medical History: Asthma, Thyroid Disorder Additional Past Medical History / Comment(s): UTI History of Any Multi-Drug Resistant Organisms: None Reported Past Surgical History: No Surgical Hx Reported Past Psychological History: Anxiety, Depression Smoking Status: Current every day smoker Past Alcohol Use History: Abuse, Daily, Heavy Past Drug Use History: None Reported General Exam Limitations: no limitations Course Vital Signs 08/14/20 18:09 Temperature 98.3 F Pulse Rate 93 Respiratory 18 Rate Blood Pressure 124/84 O2 Sat by Pulse 96 Oximetry Medical Decision Making - Lab Data Result diagrams: 08/14/20 19:03 08/14/20 19:11 Lab Results 08/14/20 08/14/20 Range/Units 19:03 19:11 WBC 7.2 (3.8-10.6) k/uL RBC 4.23 (3.80-5.40) m/uL Hgb 13.4 (11.4-16.0) gm/dL Hct 40.3 (34.0-46.0) % MCV 95.3 (80.0-100.0) fL MCH 31.7 (25.0-35.0) pg MCHC 33.3 (31.0-37.0) g/dL RDW 13.4 (11.5-15.5) % Plt Count 283 (150-450) k/uL MPV 7.1 Neutrophils % 56 % Lymphocytes % 33 % Monocytes % 4 % Eosinophils % 5 % Basophils % 0 % Neutrophils # 4.0 (1.3-7.7) k/uL Lymphocytes # 2.3 (1.0-4.8) k/uL Monocytes # 0.3 (0-1.0) k/uL Eosinophils # 0.3 (0-0.7) k/uL Basophils # 0.0 (0-0.2) k/uL Sodium 141 (137-145) mmol/L Potassium 4.2 (3.5-5.1) mmol/L Chloride 106 (98-107) mmol/L Carbon Dioxide 23 (22-30) mmol/L Anion Gap 12 mmol/L BUN 16 (7-17) mg/dL Creatinine 1.01 (0.52-1.04) mg/dL Est GFR (CKD-EPI)AfAm 81 (>60 ml/min/1.73 sqM) Est GFR (CKD-EPI)NonAf 70 (>60 ml/min/1.73 sqM) Glucose 108 H (74-99) mg/dL Calcium 8.5 (8.4-10.2) mg/dL Magnesium 2.0 (1.6-2.3) mg/dL Lipase 201 (23-300) U/L Serum Alcohol 396 H* mg/dL Disposition Clinical Impression: Alcohol intoxication Disposition: ADMITTED IP TO THIS HOSP Condition: Fair Referrals: None,Stated [Primary Care Provider] - 1-2 days Decision Time: 20:05
[2020-08-14] MEDS ORDERED: ONDANSETRON 4 MG/2 ML VIAL IVP STA ×2 (19:01→19:56)
[2020-08-14] MEDS ORDERED: SODIUM CHLORIDE 0.9% 1,000 ML IV STA (19:01)
[2020-08-14 19:16] LABS: Basophils % (A) 0 %; Eosinophils # (A) 0.3 k/uL (0-0.7); Eosinophils % (A) 5 %; HCT 40.3 % (34.0-46.0); HGB 13.4 gm/dL (11.4-16.0); Lymphocytes # (A) 2.3 k/uL (1.0-4.8); Lymphocytes % (A) 33 %; MCH 31.7 pg (25.0-35.0); MCHC 33.3 g/dL (31.0-37.0); MCV 95.3 fL (80.0-100.0); Mean Platelet Volume 7.1; Monocytes # (A) 0.3 k/uL (0-1.0); Monocytes % (A) 4 %; Neutrophils % (A) 56 %; Platelet Count 283 k/uL (150-450); RBC 4.23 m/uL (3.80-5.40); RDW 13.4 % (11.5-15.5); WBC 7.2 k/uL (3.8-10.6)
[2020-08-14 19:28] LABS: Calcium 8.5 mg/dL (8.4-10.2); Potassium 4.2 mmol/L (3.5-5.1)
[2020-08-14] MEDS ORDERED: THIAMINE 100 MG/ML 2 ML VIAL IM STA (19:59)
[2020-08-14] MEDS ORDERED: LORazepam 2 MG/ML INJ IV PRN ×2 (19:59)
[2020-08-14] MEDS ORDERED: NALOXONE 0.4 MG/ML 1 ML VIAL IV PRN (19:59)
[2020-08-14] MEDS: THIAMINE 100 MG TAB PO SCH (20:20)
[2020-08-14] MEDS ORDERED: IPRATROPIUM-ALBUTEROL 3 ML NEB INHALATION PRN (23:03)
[2020-08-14] MEDS: QUEtiapine 100 MG TAB PO SCH (23:33)
[2020-08-14] MEDS: MONTELUKAST 10 MG TAB PO SCH (23:33)
[2020-08-14] MEDS: SODIUM CHLORIDE 0.9% 1,000 ML IV SCH (23:34)
--- NOTE | 2020-08-14 23:46 | P.HPIM ---
History of Present Illness H&P Date: 08/14/20 Chief Complaint: alcohol intoxication 40 year old female with asthma and hypothyroid patient brought in here by her best friend due to alcohol intoxication , patient has relapsed into drinking again , and she has been drinking for 5 days straight. she denies any history of ICU admission for alcohol withdrawal , but does report history of DTs when she tried to quit on her own in the past where she also experienced a withdrawal seizure she currently feels fine, denies any physical complaints, denies fever, chills, cough, chest pain , trouble breathing, abd pain , GI symptoms or urinary changes in the ED , blood work was unremarkable overall, and severely elevated alcohol level patient planning on going to rehab after hospitalization , she has a bed at [facility] on sunday Review of Systems Pertinent positives as noted in HPI. All other systems were reviewed and are negative Past Medical History Past Medical History: Asthma, Thyroid Disorder Additional Past Medical History / Comment(s): UTI History of Any Multi-Drug Resistant Organisms: None Reported Past Surgical History: No Surgical Hx Reported Past Anesthesia/Blood Transfusion Reactions: No Reported Reaction Past Psychological History: Anxiety, Depression Smoking Status: Current some day smoker Past Alcohol Use History: Abuse, Daily, Heavy Past Drug Use History: None Reported - Past Family History family Family Medical History: No Reported History Medications and Allergies Home Medications Medication Instructions Recorded Confirmed Type Levothyroxine Sodium [Synthroid] 50 mcg PO DAILY 09/21/17 08/14/20 History FLUoxetine HCL [PROzac] 60 mg PO DAILY 12/22/19 08/14/20 History Gabapentin [Neurontin] 200 mg PO TID 12/22/19 08/14/20 History Ipratropium-Albuterol Nebulize 3 ml INHALATION RT-QID PRN 12/22/19 08/14/20 History [Duoneb 0.5 mg-3 mg/3 ml Soln] Montelukast [Singulair] 10 mg PO HS 12/22/19 08/14/20 History traZODone HCL [Desyrel] 100 mg PO HS 12/22/19 08/14/20 History Brimonidine Tartrate [Alphagan P 1 drop LEFT EYE BID 08/14/20 08/14/20 History 0.2% Ophth Soln] Dicyclomine [Bentyl] 20 mg PO TID PRN 08/14/20 08/14/20 History Fluticasone Propionate 220 Mcg 2 puff INHALATION RT-BID 08/14/20 08/14/20 History [Flovent 220 Mcg Inhaler (Mhu)] Potassium Chloride ER [K-Dur 10] 10 meq PO DAILY 08/14/20 08/14/20 History QUEtiapine [SEROquel] 100 mg PO HS 08/14/20 08/14/20 History Sertraline [Zoloft] 100 mg PO DAILY 08/14/20 08/14/20 History Allergies Allergy/AdvReac Type Severity Reaction Status Date / Time sulfamethoxazole Allergy Rash/Hives Verified 08/14/20 18:11 [From Bactrim] trimethoprim [From Bactrim] Allergy Rash/Hives Verified 08/14/20 18:11 Physical Exam Vitals: Vital Signs Temp Pulse Pulse Resp BP BP Pulse Ox 08/14/20 21:41 97.5 F L 78 14 104/64 94 L 08/14/20 21:40 98.3 F 88 18 95/52 96 08/14/20 20:38 88 18 95/52 96 08/14/20 18:09 98.3 F 93 18 124/84 96 Intake and Output 08/14/20 08/14/20 08/15/20 14:59 22:59 07:59 Other: Weight 81.647 kg Constitutional: No acute distress, conversant, pleasant Eyes: Anicteric sclerae, moist conjunctiva, Pupils equal round reactive to light ENMT: NC/AT Oropharynx clear, no erythema, or exudates Neck: Supple, FROM, no masses, or JVD No carotid bruits No thyromegaly Lungs: Clear to auscultation Clear to percussion Normal respiratory effort, no accessory muscle use Cardiovascular: Heart regular in rate and rhythm, No murmurs, gallops, or rubs No peripheral edema Abdominal: Soft Nontender, no guarding, rebound or rigidity Abdomen moving with respiration Normoactive bowel sounds No hepatomegaly, No splenomegaly No palpable mass No abdominal wall hernia noted Skin: Normal temperature, tone, texture, turgor No induration No subcutaneous nodules No rash, lesions No ulcers Extremities: No digital cyanosis No clubbing Pedal pulses intact and symmetrical Radial pulses intact and symmetrical No calf tenderness Psychiatric: Alert and oriented to person, place and time Appropriate affect fair judgement Neuro Muscles Strength 5/5 in all 4 extremities Sensation to light touch grossly present throughout Cranial nerves II-XII grossly intact No focal sensory deficits Lymphatics: no palpable cervical or supraclavicular , or inguinal lymph nodes Results CBC & Chem 7: 08/14/20 19:03 08/14/20 19:11 Labs: Abnormal Lab Results - Last 24 Hours (Table) 08/14/20 Range/Units 19:11 Glucose 108 H (74-99) mg/dL Serum Alcohol 396 H* mg/dL Assessment and Plan Assessment: acute severe alcohol intoxication monitor for alcohol withdrawal syndrome bbenzo per CIWA thiamine IVF hydration with normal saline seizure precautions couseled to quit alcohol abuse plans to go to rehab after discharge chronic conditions moderate persistent asthma hypothyroid resume home meds CODE STATUS:full code DVT prophylaxis: mechanical Discussed with: Patient, ER, RN Anticipated length of stay < than [address]: to [facility] A total of 65 minutes was spent on the care of this complex patient more than 50% of the time was spent in counseling and care coordination.
[2020-08-15] MEDS: LORazepam 2 MG/ML INJ IV PRN ×6 (00:09→20:29)
[2020-08-15] MEDS: ONDANSETRON 4 MG/2 ML VIAL IVP PRN ×3 (00:09→17:15)
[2020-08-15] MEDS: SODIUM CHLORIDE 0.9% 1,000 ML IV SCH ×3 (05:28→20:22)
[2020-08-15] MEDS: LEVOTHYROXINE 50 MCG TAB PO SCH (05:34)
[2020-08-15] MEDS: THIAMINE 100 MG TAB PO SCH ×2 (08:10→17:15)
[2020-08-15] MEDS: FLUoxetine HCL 20 MG CAP PO SCH (08:10)
[2020-08-15] MEDS ORDERED: SERTRALINE 100 MG TAB PO SCH (09:00)
[2020-08-15] MEDS ORDERED: DICYCLOMINE 20 MG TAB PO PRN (11:34)
[2020-08-15] MEDS: GABAPENTIN 100 MG CAP PO SCH ×3 (11:44→20:22)
[2020-08-15] MEDS: BRIMONIDINE TARTRATE 0.2% DROPS 5 ML BTL LEFT EYE SCH ×2 (13:23→20:23)
--- NOTE | 2020-08-15 14:29 | P.PN ---
Subjective Progress Note Date: 08/15/20 Pt continues to report anxiety, tremors, nausea, weakness, sweats. Objective - Vital Signs Vital signs: Vital Signs Temp 98.1 F 08/15/20 14:00 Pulse 94 08/15/20 14:00 Resp 16 08/15/20 14:00 BP 102/66 08/15/20 14:00 Pulse Ox 97 08/15/20 14:00 Intake & Output 08/14/20 08/15/20 08/15/20 17:59 06:59 18:59 Weight Other: Voiding Method Toilet # Voids - Exam Gen: awake, alert HEENT: normocephalic, atraumatic, good hearing acuity, moist mucous membranes Resp: good air exchange, breathing comfortably with no accessory muscle use, clear to auscultation bilaterally CVS: good distal perfusion x 4, regular rate and rhythm without murmurs GI: soft, NTTP, ND : no SPT, no CVAT, juan catheter not present MSK: no pitting edema, no clubbing Neuro: non-focal, moving all extremities Psych: cooperative, anxious mood - Labs CBC & Chem 7: 08/14/20 19:03 08/14/20 19:11 Labs: Abnormal Lab Results - Last 24 Hours (Table) 08/14/20 Range/Units 19:11 Glucose 108 H (74-99) mg/dL Serum Alcohol 396 H* mg/dL Assessment and Plan Assessment: 1. Acute severe alcohol intoxication Chronic Conditions: 2. moderate persistent asthma 3. hypothyroid monitor for alcohol withdrawal syndrome benzo per CIWA thiamine IVF hydration with normal saline seizure precautions couseled to quit alcohol abuse plans to go to rehab after discharge resume home meds CODE STATUS:full code DVT prophylaxis: mechanical Discussed with: Patient, ER, RN Anticipated length of stay < than [address]: to [facility]
[2020-08-15] MEDS: MONTELUKAST 10 MG TAB PO SCH (20:22)
[2020-08-15] MEDS: QUEtiapine 100 MG TAB PO SCH (20:22)
[2020-08-15] MEDS ORDERED: traZODone HCL 100 MG TAB PO SCH (21:00)
[2020-08-16] MEDS: LEVOTHYROXINE 50 MCG TAB PO SCH (06:07)
[2020-08-16 07:33] VITALS: BP 100/62; PULSE 65; RESP 16; TEMP 97.9
[2020-08-16] MEDS: SODIUM CHLORIDE 0.9% 1,000 ML IV SCH (08:09)
[2020-08-16] MEDS: FLUoxetine HCL 20 MG CAP PO SCH (08:09)
[2020-08-16] MEDS: GABAPENTIN 100 MG CAP PO SCH (08:10)
[2020-08-16] MEDS: BRIMONIDINE TARTRATE 0.2% DROPS 5 ML BTL LEFT EYE SCH (08:10)
[2020-08-16] MEDS: THIAMINE 100 MG TAB PO SCH (08:10)
--- NOTE | 2020-08-16 09:18 | P.DS ---
Providers Date of admission: 08/14/20 20:00 Expected date of discharge: 08/16/20 Attending physician: Derrell Galarza MD Primary care physician: Stated None Hospital Course: 1. Acute severe alcohol intoxication Chronic Conditions: 2. moderate persistent asthma 3. hypothyroid 40 year old woman with alcohol abuse disorder, asthma, hypothyroidism presented with acute alcohol intoxication with request for medical detox. She did well with minimal ativan requirements. On day of discharge, she was picked up by her friend with plans to rec asthma shot, then to go directly to [place] for rehab. Pt to follow up with PCP afterwards. Assessment: Gen: awake, alert HEENT: normocephalic, atraumatic, good hearing acuity, moist mucous membranes Resp: good air exchange, breathing comfortably with no accessory muscle use, clear to auscultation bilaterally CVS: good distal perfusion x 4, regular rate and rhythm without murmurs GI: soft, NTTP, ND : no SPT, no CVAT, juan catheter not present MSK: no pitting edema, no clubbing Neuro: non-focal, moving all extremities Psych: cooperative, anxious mood Patient Condition at Discharge: Good Plan - Discharge Summary Discharge Rx Participant: Yes New Discharge Prescriptions: New Folic Acid 1 mg PO DAILY #7 tablet Multivitamin [Multivitamins Adult Gummies] 1 each PO DAILY #7 tablet Thiamine [Vitamin B-1] 100 mg PO BID-W/MEALS #14 tab Continue Levothyroxine Sodium [Synthroid] 50 mcg PO DAILY traZODone HCL [Desyrel] 100 mg PO HS Montelukast [Singulair] 10 mg PO HS Ipratropium-Albuterol Nebulize [Duoneb 0.5 mg-3 mg/3 ml Soln] 3 ml INHALATION RT-QID PRN PRN Reason: Shortness Of Breath Gabapentin [Neurontin] 200 mg PO TID FLUoxetine HCL [PROzac] 60 mg PO DAILY Sertraline [Zoloft] 100 mg PO DAILY QUEtiapine [SEROquel] 100 mg PO HS Potassium Chloride ER [K-Dur 10] 10 meq PO DAILY Fluticasone Propionate 220 Mcg [Flovent 220 Mcg Inhaler (Mhu)] 2 puff INHALATION RT-BID Dicyclomine [Bentyl] 20 mg PO TID PRN PRN Reason: Gi Upset Brimonidine Tartrate [Alphagan P 0.2% Ophth Soln] 1 drop LEFT EYE BID Discharge Medication List Levothyroxine Sodium [Synthroid] 50 mcg PO DAILY 09/21/17 [History] FLUoxetine HCL [PROzac] 60 mg PO DAILY 12/22/19 [History] Gabapentin [Neurontin] 200 mg PO TID 12/22/19 [History] Ipratropium-Albuterol Nebulize [Duoneb 0.5 mg-3 mg/3 ml Soln] 3 ml INHALATION RT-QID PRN 12/22/19 [History] Montelukast [Singulair] 10 mg PO HS 12/22/19 [History] traZODone HCL [Desyrel] 100 mg PO HS 12/22/19 [History] Brimonidine Tartrate [Alphagan P 0.2% Ophth Soln] 1 drop LEFT EYE BID 08/14/20 [History] Dicyclomine [Bentyl] 20 mg PO TID PRN 08/14/20 [History] Fluticasone Propionate 220 Mcg [Flovent 220 Mcg Inhaler (Mhu)] 2 puff INHALATION RT-BID 08/14/20 [History] Potassium Chloride ER [K-Dur 10] 10 meq PO DAILY 08/14/20 [History] QUEtiapine [SEROquel] 100 mg PO HS 08/14/20 [History] Sertraline [Zoloft] 100 mg PO DAILY 08/14/20 [History] Folic Acid 1 mg PO DAILY #7 tablet 08/16/20 [Rx] Multivitamin [Multivitamins Adult Gummies] 1 each PO DAILY #7 tablet 08/16/20 [Rx] Thiamine [Vitamin B-1] 100 mg PO BID-W/MEALS #14 tab 08/16/20 [Rx] Follow up Appointment(s)/Referral(s): None,Stated [Primary Care Provider] - 1-2 days Patient Instructions/Handouts: Abuse of Alcohol (DC), Alcohol Withdrawal (DC), Alcohol Dependence (DC), Alcohol Use Disorder (DC) Discharge Disposition: OTHER INSTITUTION NOT DEFINED
== END 2020-08-16 08:30 | disposition other institution (70) ==
LOC: EC 18:06 → 4SSUR 20:00
PROVIDERS: ADMIT Internal Medicine; ATTEND Internal Medicine
DX: F10.129 Alcohol abuse with intoxication, unspecified (principal); J45.40 Moderate persistent asthma, uncomplicated; E03.9 Hypothyroidism, unspecified; F32.9 Major depressive disorder, single episode, unspecified; F41.9 Anxiety disorder, unspecified; Y90.8 Blood alcohol level of 240 mg/100 ml or more; F17.200 Nicotine dependence, unspecified, uncomplicated; Z79.890 Hormone replacement therapy; Z79.51 Long term (current) use of inhaled steroids; Z79.899 Other long term (current) drug therapy; Z88.1 Allergy status to other antibiotic agents; Z88.2 Allergy status to sulfonamides; Z87.440 Personal history of urinary (tract) infections
CPT/HCPCS: 96376 ×2; 96361 ×2; 96372; 96374; 96375; 99285; 36415; 93005; 80048; 83690; 83735; 85025; 81025; 87635; G0378 ×3; G0480; J2060 ×2; J3411; J2405 ×2; 80320

== ENCOUNTER 2020-09-11 18:57 | Observation (INO) | payer OTHER ==
[2020-09-11] MEDS ORDERED: SODIUM CHLORIDE 0.9% 1,000 ML IV STA (19:11)
[2020-09-11] MEDS ORDERED: MORPHINE SULFATE 4 MG/ML SYRINGE IV STA (19:22)
--- NOTE | 2020-09-11 19:27 | ED ---
General Adult HPI - General Chief complaint: Alcohol Stated complaint: ETOH withdrawals, ovarian cysts Time Seen by Provider: 09/11/20 19:10 Source: patient Mode of arrival: ambulatory Limitations: no limitations - History of Present Illness Initial comments: Dictation was produced using [employer] dictation software. please excuse any grammatical, word or spelling errors. This patient was cared for during a federal and state declared state [facility] secondary to Covid 19 Chief Complaint: 40-year-old female past medical history of alcohol abuse presents to the emergency department for alcohol intoxication, withdrawals and suprapubic pain History of Present Illness: 40-year-old female past medical history of alcohol abuse. She is seen here last month by myself for alcohol withdrawal. Patient states prior to come to the emergency department she did have some alcohol. States he drank heavily today. Patient states she began drinking in 7 days ago. Patient also reports that she has some left suprapubic pain. She states she is here for the abdominal pain and the alcohol withdrawals. Patient denies any fever, chills or night sweats. States that she has a history of ovarian cyst. She denies . Chart review shows that patient has transvaginal ultrasound from December 2019. Showed at that time small ovarian cyst. Patient states she's not sexually active. Denies any STDs. The ROS documented in this emergency department record has been reviewed and confirmed by me. Those systems with pertinent positive or negative responses have been documented in the HPI. All other systems are other negative and/or n oncontributory. PHYSICAL EXAM: General Impression: Alert and oriented x3, not in acute distress HEENT: Normocephalic atraumatic, extra-ocular movements intact, pupils equal and reactive to light bilaterally, mucous membranes moist. Cardiovascular: Heart regular rate and rhythm Chest: Able to complete full sentences, no retractions, no tachypnea Abdomen: abdomen soft, no pain to the right lower quadrant, she does have pain to the left lower quadrant, non-distended, no organomegaly Musculoskeletal: Pulses present and equal in all extremities, no peripheral edema Motor: no focal deficits noted Neurological: CN II-XII grossly intact, no focal motor or sensory deficits noted Skin: Intact with no visualized rashes Psych: Tearful ED course: 40-year-old female presents with acute alcohol intoxication, lower abdominal pain signs upon arrival shows her to 107, rest of vital signs within acceptable limits. Patient not showing any signs of withdrawal at this time. Laboratory evaluation obtained. No leukocytosis. CBC is unremarkable. Metabolic panel shows no acidosis. Urinalysis is unremarkable. Alcohol level is 260 EKG interpretation: Ventricular rate 97, normal sinus rhythm,. 120, QRS 86, QTC 472. No TX prolongation, no QTC prolongation, no ST or T-wave changes noted. No T-wave inversions in lead 3 when compared to EKG from 08/14/2020. Overall, this EKG is nonspecific - Related Data Home Medications Medication Instructions Recorded Confirmed Levothyroxine Sodium [Synthroid] 50 mcg PO DAILY 09/21/17 08/14/20 FLUoxetine HCL [PROzac] 60 mg PO DAILY 12/22/19 08/14/20 Gabapentin [Neurontin] 200 mg PO TID 12/22/19 08/14/20 Ipratropium-Albuterol Nebulize 3 ml INHALATION RT-QID PRN 12/22/19 08/14/20 [Duoneb 0.5 mg-3 mg/3 ml Soln] Montelukast [Singulair] 10 mg PO HS 12/22/19 08/14/20 traZODone HCL [Desyrel] 100 mg PO HS 12/22/19 08/14/20 Brimonidine Tartrate [Alphagan P 1 drop LEFT EYE BID 08/14/20 08/14/20 0.2% Ophth Soln] Dicyclomine [Bentyl] 20 mg PO TID PRN 08/14/20 08/14/20 Fluticasone Propionate 220 Mcg 2 puff INHALATION RT-BID 08/14/20 08/14/20 [Flovent 220 Mcg Inhaler (Mhu)] Potassium Chloride ER [K-Dur 10] 10 meq PO DAILY 08/14/20 08/14/20 QUEtiapine [SEROquel] 100 mg PO HS 08/14/20 08/14/20 Sertraline [Zoloft] 100 mg PO DAILY 08/14/20 08/14/20 Previous Rx's Medication Instructions Recorded Folic Acid 1 mg PO DAILY #7 tablet 08/16/20 Multivitamin [Multivitamins Adult 1 each PO DAILY #7 tablet 08/16/20 Gummies] Thiamine [Vitamin B-1] 100 mg PO BID-W/MEALS #14 tab 08/16/20 Allergies Allergy/AdvReac Type Severity Reaction Status Date / Time sulfamethoxazole Allergy Rash/Hives Verified 09/11/20 19:06 [From Bactrim] trimethoprim [From Bactrim] Allergy Rash/Hives Verified 09/11/20 19:06 Review of Systems ROS Statement: Those systems with pertinent positive or pertinent negative responses have been documented in the HPI. ROS Other: All systems not noted in ROS Statement are negative. Past Medical History Past Medical History: Asthma, Thyroid Disorder Additional Past Medical History / Comment(s): UTI History of Any Multi-Drug Resistant Organisms: None Reported Past Surgical History: No Surgical Hx Reported Past Anesthesia/Blood Transfusion Reactions: No Reported Reaction Past Psychological History: Anxiety, Depression Smoking Status: Current some day smoker Past Alcohol Use History: Abuse, Daily, Heavy Past Drug Use History: None Reported - Past Family History family Family Medical History: No Reported History General Exam Limitations: no limitations Course Vital Signs 09/11/20 19:03 Temperature 98.1 F Pulse Rate 107 H Respiratory 20 Rate Blood Pressure 116/77 O2 Sat by Pulse 95 Oximetry Medical Decision Making - Lab Data Result diagrams: 09/11/20 19:40 09/11/20 19:40 Lab Results 09/11/20 09/11/20 09/11/20 Range/Units 19:40 19:40 19:40 WBC 5.4 (3.8-10.6) k/uL RBC 4.07 (3.80-5.40) m/uL Hgb 12.8 (11.4-16.0) gm/dL Hct 39.1 (34.0-46.0) % MCV 95.9 (80.0-100.0) fL MCH 31.4 (25.0-35.0) pg MCHC 32.7 (31.0-37.0) g/dL RDW 14.4 (11.5-15.5) % Plt Count 249 (150-450) k/uL MPV 6.9 Neutrophils % 53 % Lymphocytes % 35 % Monocytes % 5 % Eosinophils % 4 % Basophils % 1 % Neutrophils # 2.9 (1.3-7.7) k/uL Lymphocytes # 1.9 (1.0-4.8) k/uL Monocytes # 0.3 (0-1.0) k/uL Eosinophils # 0.2 (0-0.7) k/uL Basophils # 0.0 (0-0.2) k/uL Sodium 140 (137-145) mmol/L Potassium 3.9 (3.5-5.1) mmol/L Chloride 106 (98-107) mmol/L Carbon Dioxide 22 (22-30) mmol/L Anion Gap 12 mmol/L BUN 14 (7-17) mg/dL Creatinine 1.00 (0.52-1.04) mg/dL Est GFR (CKD-EPI)AfAm 83 (>60 ml/min/1.73 sqM) Est GFR (CKD-EPI)NonAf 72 (>60 ml/min/1.73 sqM) Glucose 86 (74-99) mg/dL Plasma Lactic Acid Adan 1.6 (0.7-2.0) mmol/L Calcium 8.8 (8.4-10.2) mg/dL Magnesium 1.9 (1.6-2.3) mg/dL Total Bilirubin 0.3 (0.2-1.3) mg/dL AST 29 (14-36) U/L ALT 17 (4-34) U/L Alkaline Phosphatase 76 (38-126) U/L Total Protein 7.1 (6.3-8.2) g/dL Albumin 4.3 (3.5-5.0) g/dL Urine Color Urine Appearance (Clear) Urine pH (5.0-8.0) Ur Specific [place] (1.001-1.035) Urine Protein (Negative) Urine Glucose (UA) (Negative) Urine Ketones (Negative) Urine Blood (Negative) Urine Nitrite (Negative) Urine Bilirubin (Negative) Urine Urobilinogen (<2.0) mg/dL Ur Leukocyte Esterase (Negative) Urine RBC (0-5) /hpf Urine WBC (0-5) /hpf Ur Squamous Epith Cells (0-4) /hpf Urine Bacteria (None) /hpf Urine HCG, Qual (Not Detectd) Serum Alcohol 260 H* mg/dL 09/11/20 09/11/20 Range/Units 19:40 19:40 WBC (3.8-10.6) k/uL RBC (3.80-5.40) m/uL Hgb (11.4-16.0) gm/dL Hct (34.0-46.0) % MCV (80.0-100.0) fL MCH (25.0-35.0) pg MCHC (31.0-37.0) g/dL RDW (11.5-15.5) % Plt Count (150-450) k/uL MPV Neutrophils % % Lymphocytes % % Monocytes % % Eosinophils % % Basophils % % Neutrophils # (1.3-7.7) k/uL Lymphocytes # (1.0-4.8) k/uL Monocytes # (0-1.0) k/uL Eosinophils # (0-0.7) k/uL Basophils # (0-0.2) k/uL Sodium (137-145) mmol/L Potassium (3.5-5.1) mmol/L Chloride (98-107) mmol/L Carbon Dioxide (22-30) mmol/L Anion Gap mmol/L BUN (7-17) mg/dL Creatinine (0.52-1.04) mg/dL Est GFR (CKD-EPI)AfAm (>60 ml/min/1.73 sqM) Est GFR (CKD-EPI)NonAf (>60 ml/min/1.73 sqM) Glucose (74-99) mg/dL Plasma Lactic Acid Adan (0.7-2.0) mmol/L Calcium (8.4-10.2) mg/dL Magnesium (1.6-2.3) mg/dL Total Bilirubin (0.2-1.3) mg/dL AST (14-36) U/L ALT (4-34) U/L Alkaline Phosphatase (38-126) U/L Total Protein (6.3-8.2) g/dL Albumin (3.5-5.0) g/dL Urine Color Colorless Urine Appearance Cloudy H (Clear) Urine pH 5.5 (5.0-8.0) Ur Specific [place] 1.000 L (1.001-1.035) Urine Protein Negative (Negative) Urine Glucose (UA) Negative (Negative) Urine Ketones Negative (Negative) Urine Blood Negative (Negative) Urine Nitrite Negative (Negative) Urine Bilirubin Negative (Negative) Urine Urobilinogen <2.0 (<2.0) mg/dL Ur Leukocyte Esterase Negative (Negative) Urine RBC <1 (0-5) /hpf Urine WBC 1 (0-5) /hpf Ur Squamous Epith Cells <1 (0-4) /hpf Urine Bacteria Few H (None) /hpf Urine HCG, Qual Not Detected (Not Detectd) Serum Alcohol mg/dL Disposition Referrals: Curt Meza MD [Primary Care Provider] - 1-2 days
[2020-09-11 19:52] LABS: Basophils % (A) 1 %; Eosinophils # (A) 0.2 k/uL (0-0.7); Eosinophils % (A) 4 %; HCT 39.1 % (34.0-46.0); HGB 12.8 gm/dL (11.4-16.0); Lymphocytes # (A) 1.9 k/uL (1.0-4.8); Lymphocytes % (A) 35 %; MCH 31.4 pg (25.0-35.0); MCHC 32.7 g/dL (31.0-37.0); MCV 95.9 fL (80.0-100.0); Mean Platelet Volume 6.9; Monocytes # (A) 0.3 k/uL (0-1.0); Monocytes % (A) 5 %; Neutrophils # (A) 2.9 k/uL (1.3-7.7); Neutrophils % (A) 53 %; Platelet Count 249 k/uL (150-450); RBC 4.07 m/uL (3.80-5.40); RDW 14.4 % (11.5-15.5); WBC 5.4 k/uL (3.8-10.6)
[2020-09-11 19:56] LABS: Appearance,Urine Cloudy (Clear); Bacteria,Urine Few /hpf; Bilirubin,Urine Negative (Negative); Blood,Urine Negative (Negative); Color,Urine Colorless; Glucose,Urine (UA) Negative (Negative); Ketones,Urine Negative (Negative); Leukocyte Esterase,Urine Negative (Negative); Nitrite,Urine Negative (Negative); PH, Urine 5.5 (5.0-8.0); Protein,Urine Negative (Negative); RBC,Urine <1 /hpf (0-5); Squamous Epithelial Cell,Urine <1 /hpf (0-4); Urobilinogen,Urine <2.0 mg/dL (<2.0); WBC,Urine 1 /hpf (0-5)
[2020-09-11 20:03] LABS: Albumin 4.3 g/dL (3.5-5.0); Calcium 8.8 mg/dL (8.4-10.2); Magnesium 1.9 mg/dL (1.6-2.3); Potassium 3.9 mmol/L (3.5-5.1); Total Bilirubin 0.3 mg/dL (0.2-1.3); Total Protein 7.1 g/dL (6.3-8.2)
[2020-09-11] MEDS ORDERED: ONDANSETRON 4 MG/2 ML VIAL IVP PRN (20:27)
[2020-09-11] MEDS ORDERED: NALOXONE 0.4 MG/ML 1 ML VIAL IV PRN (20:27)
[2020-09-11] MEDS ORDERED: MORPHINE SULFATE 4 MG/ML SYRINGE IV PRN (20:27)
[2020-09-11] MEDS ORDERED: LORazepam 2 MG/ML INJ IV PRN ×2 (20:30)
[2020-09-11] MEDS ORDERED: THIAMINE 100 MG/ML 2 ML VIAL IM STA (20:30)
[2020-09-11] MEDS ORDERED: DICYCLOMINE 20 MG TAB PO PRN (21:15)
[2020-09-11] MEDS ORDERED: IPRATROPIUM-ALBUTEROL 3 ML NEB INHALATION PRN (21:15)
--- NOTE | 2020-09-11 22:17 | CT ---
EXAMINATION TYPE: CT abdomen pelvis w con DATE OF EXAM: 09/11/2020 COMPARISON: HISTORY: LLQ pain, history of ovarian cysts CT DLP: 1087.2 mGycm Automated exposure control for dose reduction was used. CONTRAST: Performed with IV Contrast, patient injected with 100 mL of Isovue 300. Lung bases are clear. There is no pleural effusion. Heart size is normal. There is no pericardial eff usion. Liver spleen stomach pancreas gallbladder appear intact. The bile ducts are not dilated. There is no adrenal mass. Kidneys show satisfactory contrast opacification. There is no hydronephrosi s. Ureters are not dilated. There is no retroperitoneal adenopathy. Appendix appears normal. Bladder distends smoothly. There is no inguinal hernia. There is no free fluid in the pelvis. There i s no evidence of pelvic mass. Uterus is anteverted. Lumbar vertebra have normal spacing and alignment. Posterior elements are intact. There is no vaughn darian fracture. The bony pelvis appears intact. The hip joints appear intact. There is no mesenteric edema. There is no ascites or free air. There is no bowel obstruction. IMPRESSION: Normal appendix. No significant abnormality of the abdomen and pelvis.
[2020-09-11] MEDS: SODIUM CHLORIDE 0.9% 1,000 ML IV SCH (22:43)
[2020-09-11] MEDS: GABAPENTIN 300 MG CAP PO SCH (22:46)
[2020-09-12] MEDS: QUEtiapine 100 MG TAB PO SCH ×2 (00:55→19:30)
[2020-09-12] MEDS: THIAMINE 100 MG TAB PO SCH ×2 (05:02→16:42)
[2020-09-12] MEDS: LEVOTHYROXINE 50 MCG TAB PO SCH (05:02)
[2020-09-12 08:22] VITALS: RESP 18
[2020-09-12] MEDS: LORazepam 2 MG/ML INJ IV PRN ×3 (08:30→16:49)
[2020-09-12] MEDS: FLUTICASONE 220 MCG INHALER INHALATION SCH ×2 (08:47→20:26)
[2020-09-12] MEDS ORDERED: FAMOTIDINE 20 MG/2 ML VIAL IV SCH (09:00)
[2020-09-12 10:13] LABS: African American GFR (CKD) 81 (>60 ml/min/1.73 sqM); Anion Gap 5 mmol/L; Blood Urea Nitrogen 10 mg/dL (7-17); Calcium 7.9 mg/dL (8.4-10.2); Carbon Dioxide 26 mmol/L (22-30); Chloride 105 mmol/L (98-107); Glucose 94 mg/dL (74-99); Magnesium 1.7 mg/dL (1.6-2.3); Non-African American GFR(CKD) 70 (>60 ml/min/1.73 sqM); Potassium 3.9 mmol/L (3.5-5.1); Sodium 136 mmol/L (137-145)
[2020-09-12] MEDS: FLUoxetine HCL 20 MG CAP PO SCH (10:25)
[2020-09-12] MEDS: SERTRALINE 100 MG TAB PO SCH (10:25)
[2020-09-12] MEDS: PANTOPRAZOLE 40 MG/10 ML VIAL IV SCH (10:25)
[2020-09-12] MEDS: HEPARIN SODIUM,PORCINE/PF 5,000 UNIT/0.5 ML SYRINGE SQ SCH ×2 (10:25→19:09)
[2020-09-12] MEDS: GABAPENTIN 300 MG CAP PO SCH ×3 (10:25→21:58)
[2020-09-12] MEDS: BRIMONIDINE TARTRATE 0.2% DROPS 5 ML BTL LEFT EYE SCH ×2 (10:27→19:09)
--- NOTE | 2020-09-12 11:37 | P.HPIM ---
History of Present Illness 40-year-old female came in now for all call intoxication patient has been drinking around one fifth of hard liquor every single day for about a month. She is willing to quit alcohol. Patient also comparing of suprapubic pain urine analysis essentially within normal limits patient denied any dysuria patient doesn't have any fever chills patient pain is a mild to moderate dull pain. has history of ovarian cyst patient denied any significant vaginal discharge. Review of Systems REVIEW OF SYSTEMS: CONSTITUTIONAL: No fever, no malaise, no fatigue. HEENT: No recent visual problems or hearing problems. Denied any sore throat. CARDIOVASCULAR: No chest pain, orthopnea, PND, no palpitations, no syncope. PULMONARY: No shortness of breath, no cough, no hemoptysis. GASTROINTESTINAL: No diarrhea, no nausea, no vomiting, no abdominal pain. NEUROLOGICAL: No headaches, no weakness, no numbness. HEMATOLOGICAL: Denies any bleeding or petechiae. GENITOURINARY: As mentioned in HPI MUSCULOSKELETAL/RHEUMATOLOGICAL: Denies any joint pain, swelling, or any muscle pain. ENDOCRINE: Denies any polyuria or polydipsia. The rest of the 14-point review of systems is negative. Past Medical History Past Medical History: Asthma, Thyroid Disorder Additional Past Medical History / Comment(s): UTI History of Any Multi-Drug Resistant Organisms: None Reported Past Surgical History: No Surgical Hx Reported Past Anesthesia/Blood Transfusion Reactions: No Reported Reaction Past Psychological History: Anxiety, Depression Smoking Status: Current some day smoker Past Alcohol Use History: Abuse, Daily, Heavy Past Drug Use History: None Reported - Past Family History family Family Medical History: No Reported History Medications and Allergies Home Medications Medication Instructions Recorded Confirmed Type Levothyroxine Sodium [Synthroid] 50 mcg PO DAILY 09/21/17 09/11/20 History FLUoxetine HCL [PROzac] 60 mg PO DAILY 12/22/19 09/11/20 History Ipratropium-Albuterol Nebulize 3 ml INHALATION RT-QID PRN 12/22/19 09/11/20 History [Duoneb 0.5 mg-3 mg/3 ml Soln] Montelukast [Singulair] 10 mg PO HS 12/22/19 09/11/20 History traZODone HCL [Desyrel] 100 mg PO HS 12/22/19 09/11/20 History Brimonidine Tartrate [Alphagan P 1 drop LEFT EYE BID 08/14/20 09/11/20 History 0.2% Ophth Soln] Dicyclomine [Bentyl] 20 mg PO TID PRN 08/14/20 09/11/20 History Fluticasone Propionate 220 Mcg 2 puff INHALATION RT-BID 08/14/20 09/11/20 Histo ry [Flovent 220 Mcg Inhaler (Mhu)] Potassium Chloride ER [K-Dur 10] 10 meq PO DAILY 08/14/20 09/11/20 History QUEtiapine [SEROquel] 100 mg PO HS 08/14/20 09/11/20 History Sertraline [Zoloft] 100 mg PO DAILY 08/14/20 09/11/20 History Gabapentin 300 mg PO TID 09/11/20 09/11/20 History LORazepam [Ativan] 1 mg PO BID PRN 09/11/20 09/11/20 History Nitrofurantoin Monohyd/M-Cryst 100 mg PO BID 09/11/20 09/11/20 History [Macrobid] Omalizumab [Xolair] 150 mg SQ Q30D 09/11/20 09/11/20 History Ondansetron [Zofran ODT] 4 mg PO Q8H PRN 09/11/20 09/11/20 History Allergies Allergy/AdvReac Type Severity Reaction Status Date / Time sulfamethoxazole Allergy Rash/Hives Verified 09/11/20 20:55 [From Bactrim] trimethoprim [From Bactrim] Allergy Rash/Hives Verified 09/11/20 20:55 Physical Exam Vitals: Vital Signs Temp Pulse Pulse Resp BP BP Pulse Ox 09/12/20 08:35 80 18 09/12/20 08:21 98.1 F 80 18 97/63 96 09/12/20 05:04 97.4 F L 62 16 124/67 97 09/12/20 02:00 16 09/11/20 23:58 98.0 F 100 16 133/69 99 09/11/20 22:49 89 16 98/58 95 09/11/20 19:03 98.1 F 107 H 20 116/77 95 Intake and Output 09/11/20 09/12/20 09/12/20 22:59 06:59 14:59 Intake Total 750 Balance 750 Intake: Oral 750 Other: Voiding Method Toilet Toilet # Voids 1 1 Weight 81.647 kg 81.647 kg PHYSICAL EXAMINATION: GENERAL: The patient is alert and oriented x3, not in any acute distress. Well developed, well nourished. HEENT: Pupils are round and equally reacting to light. EOMI. No scleral icterus. No conjunctival pallor. Normocephalic, atraumatic. No pharyngeal erythema. No thyromegaly. CARDIOVASCULAR: S1 and S2 present. No murmurs, rubs, or gallops. PULMONARY: Chest is clear to auscultation, no wheezing or crackles. ABDOMEN: Soft, minimal tenderness in the supra pubic area , nondistended, normoactive bowel sounds. No palpable organomegaly. MUSCULOSKELETAL: No joint swelling or deformity. EXTREMITIES: No cyanosis, clubbing, or pedal edema. NEUROLOGICAL: Gross neurological examination did not reveal any focal deficits. SKIN: No rashes. Results CBC & Chem 7: 09/11/20 19:40 09/12/20 09:36 Labs: Abnormal Lab Results - Last 24 Hours (Table) 09/11/20 09/11/20 09/12/20 Range/Units 19:40 19:40 09:36 Sodium 136 L (137-145) mmol/L Calcium 7.9 L (8.4-10.2) mg/dL Urine Appearance Cloudy H (Clear) Ur Specific [place] 1.000 L (1.001-1.035) Urine Bacteria Few H (None) /hpf Serum Alcohol 260 H* mg/dL Thrombosis Risk Factor Assmnt - Choose All That Apply Each Factor Represents 1 point: Obesity (BMI >25) Thrombosis Risk Factor Assessment Total Risk Factor Score: 1 Thrombosis Risk Factor Assessment Level: Low Risk Assessment and Plan Plan: -Alcohol intoxication: Counseling was provided -alcohol withdrawal: Patient will be monitored and patient is presently on CIWA protocol -Mild suprapubic pain: Patient will be monitored no evidence of UTI . -Hyperthyroidism -Asthma -Depression: psychiatry is evaluating the patient - nicotine use: Counseling was provided -Due to prophylaxis with the heparin and GI prophylaxis with Protonix
--- NOTE | 2020-09-12 12:17 | P.CN ---
Psychiatric Consult - . Consult date: 09/12/20 Consult:: IDENTIFYING DATA: The patient is a 40-year-old single female who [facility] with complaints of lower abdominal pain. The hospitalist consulted psychiatry for evaluation of alcohol use and depression. HISTORY OF PRESENT ILLNESS: I reviewed the medical record and interviewed the patient. She acknowledged that she has an alcohol use problem. She reported drinking up to one fifth of liquor per day. She alleged that she has been trying to wean herself off of alcohol in preparation for admission to a residential rehabilitation program. 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 Her first appointment with the release manager recovery court is on 09/13/2020. She minimized her feelings of depression and alleged that her primary mental health problem other than alcohol is anxiety. She alleged that she has a "social anxiety disorder" where she feels markedly uncomfortable in social situations. She drinks to relieve herself of the "social anxiety" but becomes more anxious when she stops drinking. She described a pattern of daily alcohol use where she begins drinking in the morning to steady her nerves and reduce anxiety. She denied that she is currently experiencing alcohol withdrawal symptoms. Her CIWA scores range from 0-15 that she's been on the observation unit or changes received 3 mg of Ativan per CIWA protocol for alcohol withdrawal symptoms. She denied having thoughts of or suicide. She denied history of suicide attempts or gestures. She denied experiencing periods of elevated mood or sustained irritability suggestive of ewelina or hypomania. She denied ex periencing psychotic symptoms such as hallucinations, paranoia or confusion. She denied use of drugs other than alcohol. PAST PSYCHIATRIC HISTORY: She had two psychiatric hospitalizations she was lori hogan in [facility]. She attributed the hospitalizations to her alcohol use and difficulties in an interpersonal relationship. She has been in outpatient mental health treatment "off-and-on" throughout much of her adult life. She left met with outpatient counselor in April 2020. According her medical record she is prescribed the following psychotropic medications- Prozac 60mg daily, trazodone 100 mg at bedtime, sertraline 100 mg daily, Seroquel 100 mg at bedtime and Ativan 1 mg by mouth twice a day. PAST MEDICAL HISTORY: The admission medical history and physical ALLERGIES: Sulfamethoxazole, trimethoprim SUBSTANCE USE HISTORY: She began drinking in early adulthood and described increasing problems with alcohol as she aged. Her alcohol use has increased recently purportedly following a breakup of a long-term relationship.. She is had 2 presentations to argue ED where she was intoxicated with blood alcohol levels of 396 and 260. She denied that she is experiencing severe alcohol withdrawal symptoms such as confusion or hallucinations suggestive of delirium. She denied having alcohol withdrawal seizures. She has been in [place] for alcohol recovery 4 times. She has had 2 driving while intoxicated citations. She alleged that she has an intake assessment scheduled with De Motte rohith at [facility] for residential substance abuse treatment. As noted above she is currently in recovery court due to her second DUI. FAMILY PSYCHIATRIC/SUBSTANCE USE HISTORY: She has extended family with mental health and substance use problems. She is unaware of the nature of her problems because she alleged that her parents kept her away from "that part of the family". SOCIAL HISTORY: She was born in [facility] and lived in [place], [place] and [place]. She graduated from high school in [place]. She is single and has no children. 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 She is currently only of and receives unemployment compensation. She has no stable residence and has been recently living at a hotel. MENTAL STATUS EXAM: She presented as a disheveled appearing moderately obese 40-year-old female who is laying in bed. She made eye contact and appeared to attend to the interview. She had tattoos on her arms but no prominent physical abnormalities. She had a blunted facial expression. She was alert and oriented to person, place and time. She had psychomotor retardation but no abnormal involuntary movements. Her speech was spontaneous with normal rate, rhythm and volume. She denied suicidal ideation and wishes. She denied homicidal ideation. She expresses feelings of helplessness regarding her chronic and recurrent alcohol use but denied hopelessness or worthlessness. She did not express ideas reference, paranoid ideation or delusions. Her thinking was concrete but her associations were coherent, logical to call directed. She denied hallucinations did not appear to be responding to internal stimuli. IMPRESSIONS: She is 40-year-old single female who presented to the ED daily intoxicated and complaining of lower abdominal pain. The hospitalist consulted psychiatry to evaluate depression in her alcohol use problems. She minimized depression and focused primarily on anxiety and anxiety symptoms. She acknowledged her alcohol use problems and described the problems that she is encountered as a result of her alcohol use. She is currently in recovery court and seeking admission to another residential substance abuse treatment program. She has mild to moderate alcohol withdrawal symptoms uncomplicated by delirium or seizures. There is no indication for transfer to the psychiatric unit at this time. She would benefit from detox from alcohol that admission to a residential substance abuse treatment program. She should continue with outpatient mental health services after discharge from the residential treatment program. DIAGNOSIS: Alcohol use disorder severe, alcohol withdrawal, alcohol induced mood disorder RECOMMENDATION: There is no indication for transfer to the psychiatric unit. Continue with her current psychotropic medications including Prozac 60 mg daily, gabapentin 300 mg 3 times a day, Zoloft 100 mg daily and Desyrel 100 mg at bedtime. Continue with alcohol detox protocol, monitoring for signs and symptoms of severe withdrawal. Provide her with information on how to access residential substance abuse treatment programs. She should follow up with her appointments at recovery court. Thank you for this consult. Psychiatry will sign off on the case. 09/12/20 11:55
[2020-09-12] MEDS: KETOROLAC 15 MG/ML 1 ML VIAL IVP PRN ×2 (12:43→19:16)
[2020-09-12] MEDS: SODIUM CHLORIDE 0.9% 1,000 ML IV SCH (19:19)
--- NOTE | 2020-09-12 20:51 | US ---
EXAMINATION TYPE: US pelvic complete DATE OF EXAM: 09/12/2020 COMPARISON: NONE CLINICAL HISTORY: pelvic pain. pelvic pain x 4 days, h/o ovarian cysts, negative CT scan yesterday TECHNIQUE: TA. Transabdominal sonographic images of the pelvis were acquired. Date of LMP: ?09/06/2020, pt unsure of exact start date EXAM MEASUREMENTS: Uterus: 8.3 x 4.6 x 3.2 cm Endometrial Stripe: 1.0 cm Right Ovary: 4.5 x 2.6 x 1.8 cm Left Ovary: 2.3 x 1.7 x 2.1 cm 1. Uterus: Anteverted wnl 2. Endometrium: wnl 3. Right Ovary: 2.1cm cyst seen 4. Left Ovary: posterior to UT, wnl 5. Bilateral Adnexa: wnl 6. Posterior cul-de-sac: wnl IMPRESSION: No acute abnormality of the pelvic ultrasound. 2.1 cm simple appearing right ovarian cyst.
[2020-09-12] MEDS ORDERED: traZODone HCL 100 MG TAB PO SCH (21:00)
[2020-09-12] MEDS ORDERED: MONTELUKAST 10 MG TAB PO SCH (21:00)
[2020-09-12] MEDS ORDERED: QUEtiapine 100 MG TAB PO SCH (21:00)
[2020-09-13] MEDS: LEVOTHYROXINE 50 MCG TAB PO SCH (06:05)
[2020-09-13 08:27] VITALS: BP 126/88; PULSE 56; TEMP 97.9
[2020-09-13] MEDS: PANTOPRAZOLE 40 MG/10 ML VIAL IV SCH (08:47)
[2020-09-13] MEDS: HEPARIN SODIUM,PORCINE/PF 5,000 UNIT/0.5 ML SYRINGE SQ SCH ×2 (08:48→09:01)
[2020-09-13] MEDS: GABAPENTIN 300 MG CAP PO SCH (08:48)
[2020-09-13] MEDS: BRIMONIDINE TARTRATE 0.2% DROPS 5 ML BTL LEFT EYE SCH (08:49)
[2020-09-13] MEDS: THIAMINE 100 MG TAB PO SCH (08:49)
[2020-09-13] MEDS: FLUoxetine HCL 20 MG CAP PO SCH (08:49)
[2020-09-13] MEDS: SERTRALINE 100 MG TAB PO SCH (08:50)
[2020-09-13] MEDS: KETOROLAC 15 MG/ML 1 ML VIAL IVP PRN (08:57)
[2020-09-13] MEDS: FLUTICASONE 220 MCG INHALER INHALATION SCH (09:55)
--- NOTE | 2020-09-13 12:21 | P.DS ---
Providers Date of admission: 09/11/20 20:27 Attending physician: Chava Kamara MD Consults: 09/11/20 21:15 Consult Physician Urgent Consulting Provider: Sami Barnes Consult Reason/Comments: alcoholic , h/o depression Do you want consulting provider notified?: Yes Primary care physician: Susana Richmond [facility] Course: 40-year-old female came in now for all call intoxication patient has been drin hao around one fifth of hard liquor every single day for about a month. She is willing to quit alcohol. Patient also comparing of suprapubic pain urine analysis essentially within normal limits patient denied any dysuria patient doesn't have any fever chills patient pain is a mild to moderate dull pain. has history of ovarian cyst patient denied any significant vaginal discharge. 09/13/2020 Patient doesn't have any withdrawals at this time patient family is a setting up outpatient alcohol Rehabilitation for her extensive counseling regarding this was provided to the patient. She has been drinking heavily only for weeks ago because of that I do not believe patient will have sick withdrawals but will provide her with the Librium prescription if needed for withdrawals. Patient's abdominal pain is better and pale with did obtain a ultrasound of the pelvis with chair showed a 2.1 a simple cyst which I do not believe is contributing to her significant pain. Patient will follow-up with her [employer] patient will be discharged today. CT of the abdomen was done in ER which didn't show any significant abnormality PHYSICAL EXAMINATION: GENERAL: The patient is alert and oriented x3, not in any acute distress. Well developed, well nourished. HEENT: Pupils are round and equally reacting to light. EOMI. No scleral icterus. No conjunctival pallor. Normocephalic, atraumatic. No pharyngeal erythema. No thyromegaly. CARDIOVASCULAR: S1 and S2 present. No murmurs, rubs, or gallops. PULMONARY: Chest is clear to auscultation, no wheezing or crackles. ABDOMEN: Soft, nontender, nondistended, normoactive bowel sounds. No palpable organomegaly. MUSCULOSKELETAL: No joint swelling or deformity. EXTREMITIES: No cyanosis, clubbing, or pedal edema. NEUROLOGICAL: Gross neurological examination did not reveal any focal deficits. SKIN: No rashes. Assessment and Plan Plan: -Alcohol intoxication: Counseling was provided -alcohol withdrawal: No withdrawals so far -Mild suprapubic pain: no evidence of UTI . Patient has a simple cyst probably not contributing to her pain although her pain improved -Hyperthyroidism -Asthma -Depression: - nicotine use: Counseling was provided Patient Condition at Discharge: Good Plan - Discharge Summary Discharge Rx Participant: No New Discharge Prescriptions: New chlordiazePOXIDE HCl [Librium] 25 mg PO QID 3 Days #12 capsule Thiamine [Vitamin B-1] 100 mg PO BID-W/MEALS #60 tab Continue Levothyroxine Sodium [Synthroid] 50 mcg PO DAILY traZODone HCL [Desyrel] 100 mg PO HS Montelukast [Singulair] 10 mg PO HS Ipratropium-Albuterol Nebulize [Duoneb 0.5 mg-3 mg/3 ml Soln] 3 ml INHALATION RT-QID PRN PRN Reason: Shortness Of Breath FLUoxetine HCL [PROzac] 60 mg PO DAILY Sertraline [Zoloft] 100 mg PO DAILY QUEtiapine [SEROquel] 100 mg PO HS Potassium Chloride ER [K-Dur 10] 10 meq PO DAILY Fluticasone Propionate 220 Mcg [Flovent 220 Mcg Inhaler (Mhu)] 2 puff INHALATION RT-BID Dicyclomine [Bentyl] 20 mg PO TID PRN PRN Reason: Gi Upset Brimonidine Tartrate [Alphagan P 0.2% Ophth Soln] 1 drop LEFT EYE BID Ondansetron [Zofran ODT] 4 mg PO Q8H PRN PRN Reason: Nausea And Vomiting Omalizumab [Xolair] 150 mg SQ Q30D Gabapentin 300 mg PO TID LORazepam [Ativan] 1 mg PO BID PRN PRN Reason: withdrawal Discontinued Nitrofurantoin Monohyd/M-Cryst [Macrobid] 100 mg PO BID Discharge Medication List Levothyroxine Sodium [Synthroid] 50 mcg PO DAILY 09/21/17 [History] FLUoxetine HCL [PROzac] 60 mg PO DAILY 12/22/19 [History] Ipratropium-Albuterol Nebulize [Duoneb 0.5 mg-3 mg/3 ml Soln] 3 ml INHALATION RT-QID PRN 12/22/19 [History] Montelukast [Singulair] 10 mg PO HS 12/22/19 [History] traZODone HCL [Desyrel] 100 mg PO HS 12/22/19 [History] Brimonidine Tartrate [Alphagan P 0.2% Oph Soln] 1 drop LEFT EYE BID 08/14/20 [History] Dicyclomine [Bentyl] 20 mg PO TID PRN 08/14/20 [History] Fluticasone Propionate 220 Mcg [Flovent 220 Mcg Inhaler (Mhu)] 2 puff INHALATION RT-BID 08/14/20 [History] Potassium Chloride ER [K-Dur 10] 10 meq PO DAILY 08/14/20 [History] QUEtiapine [SEROquel] 100 mg PO HS 08/14/20 [History] Sertraline [Zoloft] 100 mg PO DAILY 08/14/20 [History] Gabapentin 300 mg PO TID 09/11/20 [History] LORazepam [Ativan] 1 mg PO BID PRN 09/11/20 [History] Omalizumab [Xolair] 150 mg SQ Q30D 09/11/20 [History] Ondansetron [Zofran ODT] 4 mg PO Q8H PRN 09/11/20 [History] Thiamine [Vitamin B-1] 100 mg PO BID-W/MEALS #60 tab 09/13/20 [Rx] chlordiazePOXIDE HCl [Librium] 25 mg PO QID 3 Days #12 capsule 09/13/20 [Rx] Follow up Appointment(s)/Referral(s): Curt Meza MD [Primary Care Provider] - 3 Days
== END 2020-09-13 13:05 | disposition home or self-care (01) ==
LOC: EC 18:57 → 6NMEDSUR 20:27 → 1SOBS 09-12 00:29
PROVIDERS: ADMIT Internal Medicine; ATTEND Internal Medicine
DX: F10.129 Alcohol abuse with intoxication, unspecified (principal); R10.30 Lower abdominal pain, unspecified; E05.90 Thyrotoxicosis, unspecified without thyrotoxic crisis or storm; N83.291 Other ovarian cyst, right side; F10.14 Alcohol abuse with alcohol-induced mood disorder; J45.909 Unspecified asthma, uncomplicated; F32.9 Major depressive disorder, single episode, unspecified; F41.9 Anxiety disorder, unspecified; Y90.8 Blood alcohol level of 240 mg/100 ml or more; F17.200 Nicotine dependence, unspecified, uncomplicated; E66.9 Obesity, unspecified; Z68.25 Body mass index [BMI] 25.0-25.9, adult; Z79.890 Hormone replacement therapy; Z79.51 Long term (current) use of inhaled steroids; Z79.899 Other long term (current) drug therapy; Z88.2 Allergy status to sulfonamides; Z88.1 Allergy status to other antibiotic agents; Z87.440 Personal history of urinary (tract) infections; Z20.822 Contact with and (suspected) exposure to COVID-19; Z81.8 Family history of other mental and behavioral disorders; Z81.4 Family history of other substance abuse and dependence
CPT/HCPCS: 96375 ×2; 96376 ×3; 96361; 96372; 96374; 99285; 36415; 93005; 80053; 80048; 83605; 83735 ×2; 85025; 81001; 81025; 84703; 87635; 76856; 74177; G0378 ×3; G0480; J2060; J2270 ×2; J3411; J1885 ×2; C9113 ×2; Q9967; 80320